=== PATIENT | female | born 1945 | race Caucasian/White ===

== ENCOUNTER 2023-11-08 14:54 | Outpatient (AMB) | payer MEDICARE, SELFPAY ==
--- NOTE | 2023-11-08 14:59 | MHC.OFFWIV ---
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 abscess Patient Tobacco Use Status: Never used Tobacco Allergies No Known Allergies Allergy (Verified 11/08/23 15:06) Medication List - Last Reconciled 11/08/23 by Liseth Hui NP apixaban (Eliquis) 5 mg PO BID atenolol 50 mg PO DAILY atorvastatin 40 mg PO DAILY calcium carbonate-vitamin D3 600 mg-10 mcg (400 unit) 1 tab PO BID fluticasone propionate 50 mcg/actuation sprays intranasal lisinopril 10 mg PO DAILY loratadine 10 mg PO DAILY methimazole mg PO nystatin 1 appl topical BID PRN sertraline 25 mg PO DAILY Do you need a note to return to daycare/school/sports/work: No HPI ADMINISTRATIVE ASSISTANT DATA ENTRY rash/cyst AB HPI Details This note is constructed using voice recognition software. While every effort has been made to ensure accuracy, offal worker errors may have been included. The patient is a 78 year old female presents with her to the clinic today with perineum rash. The patient has been diagnosed with dementia over 1 year ago, and the who has Parkinson's has been trying to provide her care. Ultimately through several avenues they were able to secure a home health aide which comes 3 times a week. The home health aide had been providing her with hygiene care, and due to the rash was applying Desitin to the area with a hygiene measures. The home health aide noticed that she had some cyst to the rabia area, and she was treated several weeks ago with antibiotics. She has another newer cyst which is much smaller to the periarea, which had led them to concern. She wears briefs for urinary incontinence, and is mobile with use of a cane and assistance only. Her dementia has led to significant decline over the past year, which has led to her inability to participate largely with her hygiene efforts. PFSH Social History Patient Tobacco Use Status: Never used Tobacco Review of Systems Const All systems reviewed & are unremarkable except as noted in HPI and below Physical Exam Vital Signs: Last Vital Signs Temp 98.3 F 11/08/23 15:01 Pulse 62 11/08/23 15:01 BP 108/70 11/08/23 15:01 Pulse Ox 98 11/08/23 15:01 Oxygen Delivery Method Room Air 11/08/23 15:01 BMI result Body Mass Index 32.8 Const General: cooperative, healthy appearing, comfortable, no acute distress and well developed Orientation/consciousness: patient oriented x3 Limitations: no limitations Resp Effort & Inspection: normal respiratory effort and able to speak in complete sentences Skin Other: Fungal rash to perineum. Small cystic lesion to the right with head. Neuro General: patient oriented x3 Assessment & Plan Assessment & Plan (1) Rash: Code(s): R21 - Rash and other nonspecific skin eruption Plan: Appears fungal in nature. We will try nystatin powder for it. Advised patient to keep the area clean and dry. Trial warm compresses to small cystic area for assistance with drainage. Defer prescription treatment at this time given this is an isolated cyst and she had recently been treated with antibiotics. Plan See above for full details and plan. Medications: New nystatin 1 appl topical BID PRN 30 grams 0RF rash Coding Level of Care Code Est Pt Level 4 (72204) Diagnoses Rash R21 Time Spent (min) 25
[2023-11-08 15:01] VITALS: BP 108/70; PULSE 62; TEMP 36.8; O2SAT 98; BMI 32.8
== END 2023-11-08 16:32 | disposition home or self-care (01) ==
PROVIDERS: PCP Internal Medicine; Visit Provider Registered Nurse
DX: R21 Rash and other nonspecific skin eruption (principal)

== ENCOUNTER → 2023-11-08 14:54 | Outpatient (BNVA) | payer MEDICARE, SELFPAY | PROVIDERS: PCP Internal Medicine | DX: R21 Rash and other nonspecific skin eruption (principal) | CPT/HCPCS: 99212 ==

== ENCOUNTER 2024-04-11 09:37 | Outpatient (AMB) | payer MEDICARE, SELFPAY ==
--- OUTSIDE RECORDS SUMMARY | 2024-04-11 10:21 | XMS_ITS | Encounter Summary ---
Author Organization [facility] Address [address] [place] [address] Care Team Providers Care Administrative Liaison Name Role Phone Celestine Doyle MD Primary Care Provider [phone] Reason for Visit * Reason Comments ANNUAL WELLNESS VISIT Encounter Details Date Type Department Care Team (Late st Contact Info) Description 04/05/2024 3:00 PM EST Office Visit Adult Medicine [facility] [place] [address] [place] [phone] Celestine Doyle MD [address] [place] [address] Alzheimer disease (CMS/HCC) (Primary Dx); Other hyperlipidemia; Urinary incontinence, unspecified type; Hyperglycemia; Primary hypertension; Pure hypercholesterolemia Social History Tobacco Use Types Packs/Day Years Used Date Smoking Tobacco: Never Assessed Cigarettes Quit: 01/11/1968 Smokeless Tobacco: Never Alcohol Use Standard Drinks/Week Comments Yes 0 (1 standard drink = 0.6 oz pur e alcohol) Comments No Sex and Gender Information Value Date Recorded Sex Assigned at Not on file Legal Sex Female 6:54 PM EST Gender Identity Not on file Sexual Orientation Not on file documented as of this encounter Last Filed Vital Signs Vital Sign Reading Time Taken Comments Blood Pressure 122/68 04/05/2024 3:11 PM EST Pulse 56 04/05/2024 3:11 PM EST Temperature 36.1 ??C (96.9 ??F) 04/05/2024 3:11 PM ES T Respiratory Rate 20 04/05/2024 3:11 PM EST Oxygen Saturation - - Inhaled Oxygen Concentration - - Weight 90.3 kg (199 lb) 04/05/2024 3:11 PM EST Height 172.7 cm (5' 8 ) 04/05/2024 3:11 PM EST Body Mass Index 30.26 04/05/2024 3:11 PM EST documented in this encounter Progress Notes * Celestine Doyle MD - 04/05/2024 3:00 PM ESTAssociated Problem(s): Alzheimer disease (CMS/HCC) * Celestine Doyle MD - 04/05/2024 3:00 PM ESTAssociated Problem(s): Hyperlipidemia * Celestine Doyle MD - 04/05/2024 3:00 PM ESTAssociated Problem(s): Hyperglycemia * Celestine Doyle MD - 04/05/2024 3:00 PM ESTAssociated Problem(s): Primary hypertension * Celestine Doyle MD - 04/05/2024 3:00 PM ESTAssociated Problem(s): Pure hypercholesterolemia * Celestine Doyle MD - 04/05/2024 3:00 PM EST Images from the original note were not included. Medicare Annual Wellness Visit Note Patient Name: Mabel Longo Date of : 1945 Race: White Ethnicity: Not Hispan/Lat Date of Service: 04/05/2024 Mabel is a 78 y.o. female presenting for ANNUAL WELLNESS VISIT History of Present Illness HPI See below for complete details Comprehensive Medical and Social History: Patient Active Problem List Diagnosis Abnormal MRI Actinic keratosis Acute deep vein thrombosis (DVT) of calf muscle vein of right lower extremity (CMS/HCC) Alzheimer disease (CMS/HCC) Primary hypertension Current mild episode of major depressive disorder without prior episode (CMS/HCC) Diverticulitis of colon without hemorrhage Hyperglycemia Hyperlipidemia Infiltrating duct carcinoma (CMS/HCC) Malignant neoplasm of right female breast (CMS/HCC) Obesity Osteoarthrosis Osteopenia Pure hypercholesterolemia Subclinical hyperthyroidism Vitamin D deficiency Allergies Allergen Reactions Azithromycin Other Reaction(s): Rash/Dermatitis Bactrim [Sulfamethoxazole-Trimethoprim] Other Reaction(s): Hives/Urticaria, Itching/Pruritus Demerol [Meperidine] Nausea And Vomiting Doxycycline Hyclate Other Reaction(s): Rash/Dermatitis Penicillins Sulfa (Sulfonamide Antibiotics) Other Reaction(s): Rash/Dermatitis Current Outpatient Medications Medication Sig Dispense Refill apixaban (Eliquis) 5 mg tablet TAKE 1 TABLET BY MOUTH TWICE DAILY atenoloL (TENORMIN) 25 mg tablet TAKE 1 TABLET BY MOUTH EVERY DAY WITH 50 MG TABLET FOR A TOTAL DAILY DOSE OF 75 MGS atenoloL (TENORMIN) 50 mg tablet TAKE 1 TABLET BY MOUTH EVERY DAY 28 tablet 0 atorvastatin (LIPITOR) 40 mg tablet Take 1 Tablet by mouth daily for 360 days. calcium carbonate-vitamin D 600 mg-10 mcg (400 unit) per tablet TAKE 1 TABLET BY MOUTH TWICE A DAY fluticasone propionate (FLONASE) 50 mcg/actuation nasal spray folic acid (FOLVITE) 800 mcg tablet Take by mouth 1 (one) time each day. lisinopriL (PRINIVIL,ZESTRIL) 10 mg tablet Take 1 Tablet by mouth daily. sertraline (ZOLOFT) 25 mg tablet TAKE 1 TABLET BY MOUTH EVERY DAY cholecalciferol (VITAMIN D-3) 50 mcg (2,000 unit) tablet TAKE 1 TABLET BY MOUTH EVERY DAY clindamycin (CLEOCIN) 300 mg capsule Take 1 capsule (300 mg total) by mouth 4 (four) times a day. loperamide (IMODIUM) 2 mg capsule Take 1 capsule (2 mg total) by mouth 4 (four) times a day if needed for diarrhea. loratadine (CLARITIN) 10 mg tablet Take 1 Tablet by mouth daily for 360 days. methIMAzole (TAPAZOLE) 5 mg tablet Take 2 Tablets by mouth daily. trospium (SANCTURA) 20 mg tablet Take 3 tablets (60 mg total) by mouth 2 (two) times a day. No current facility-administered medications for this visit. Past Medical History: Diagnosis Date Actinic keratosis, hx of DX:Actinic keratosis, hx of Diverticulosis of colon (without mention of hemorrhage) 12/26/2012 DX:Diverticulosis of colon (without mention of hemorrhage); COMMENT: Incidental finding at colonoscopy 12/26/2012. Essential hypertension, benign 09/02/2006 DX:Essential hypertension, benign H/O right breast biopsy rt breast cancer/04/15 lumpectomy Hyperglycemia 09/11/2009 DX:Hyperglycemia Malignant neoplasm of right female breast (CMS/HCC) 07/28/2021 DX:Malignant neoplasm of right female breast (HCC) Obesity 06/16/2010 DX:Obesity Osteoarthrosis, unspecified whether generalized or localized, lower leg 09/02/2006 DX:Osteoarthrosis, unspecified whether generalized or localized, lower leg Pure hypercholesterolemia 09/02/2006 DX:Pure hypercholesterolemia Past Surgical History: Procedure Laterality Date COLONOSCOPY 2002 PROCEDURE: MN COLONOSCOPY FLX DX W/COLLJ SPEC WHEN PFRMD; COMMENT: normal COLONOSCOPY 2012 PROCEDURE: MN COLONOSCOPY FLX DX W/COLLJ SPEC WHEN PFRMD; COMMENT: minimal diverticulosis TOTAL KNEE ARTHROPLASTY PROCEDURE: HISTORICAL TOTAL KNEE REPLACE; COMMENT: bilateral Social History Socioeconomic History Marital status: Spouse name: Not on file Number of children: Not on file Years of education: Not on file Highest education level: Not on file Occupational History Not on file Tobacco Use Smoking status: Not on file Smokeless tobacco: Never Substance and Sexual Activity Alcohol use: Yes Drug use: Never Sexual activity: Not on file Other Topics Concern Not on file Social History Narrative Not on file Family History Problem Relation Name Age of Onset Basal cell carcinoma Mother Nose Breast cancer Mother age 69 Cancer Mother Breast Other (Other: chf) Father Breast cancer Sister 56 age 56; BRCA negative Melanoma Sister Dec 2009 .... inside of right thigh, reexcision without sentinenal nodes .... fse q 3 months Breast cancer Sister Diabetes Daughter cervical Ca age 31 Cancer Daughter Cervical Cancer Diabetes Uncle Breast cancer Mother's side aunt Breast cancer Other m cousin 70s Immunizations: Immunization History Administered Date(s) Administered H1N1 Inj Preservative Free 02/01/2009 Influenza trivalent, 0.5mL (Fluzone High-dose) 65yo and older 02/01/2009, 12/27/2009, 12/16/2010, 11/24/2011, 12/22/2012, 12/20/2014, 12/29/2015, 11/29/2016, 11/21/2017, 11/21/2018, 10/26/2019, 12/24/2020, 12/22/2021, 11/24/2022 Influenza trivalent, with preservative (Fluzone; Afluria) 6mo and older 12/11/2006, 11/29/2007 Influenza, Unspecified 12/06/2013 Moderna (age 6mo & older) Bivalent, COVID-19, 0.5 mL or 0.25 mL dosage 10/31/2021 Spor Chargers SARS-CoV-2 COVID-19, mRNA, LNP-S, preservative free 03/29/2020, 04/19/2020, 11/21/2020 Pneumococcal conjugate 13 valent (Prevnar 13, PCV13) 2mo and older 01/14/2015 Pneumococcal polysaccharide 23 valent (Pneumovax 23) 2yo and older 12/16/2010 Tdap Tetanus diptheria acellular pertussis (Boostrix; Adacel) 7yo and older 11/24/2011, 11/24/2022 Zoster Live 08/02/2012 Zoster recombinant (Shingrix) 19yo and older 04/25/2019 Hospitalization in the last year: Has been hospitalized once in the past 12 months. Current Providers and Suppliers: Patient Care Team: Celestine Doyle MD as PCP - General Patient does not have/use current medical supplier Risk Assessments: Cognitive Function Assessment Cognitive screening performed. Depression Screening (PHQ2/9): Depression Screening Will the patient answer the depression risk questions?: Yes Over the last 2 weeks, how often have you been bothered by little interest or pleasure in doing things?: Several days Over the last 2 weeks, how often have you been bothered by feeling down, depressed, or hopeless?: Not at all Depression Risk: 1 PHQ9 Full Set of Questions Over the last 2 weeks, how often have you been bothered by little interest or pleasure in doing things?: Several days Over the last 2 weeks, how often have you been bothered by feeling down, depressed, or hopeless?: Not at all Depression Risk Score NEW: 1 Depression Plan : ... Somewhat unreliable, due to significant Alzheimer's disease, please see below Anxiety Screening: Alcohol Screening: Substance Abuse Screening: See below for complete details Pain: Pain Medications: Patient does not take any opioid medications BMI: Body mass index is 30.26 kg/m??. The BMI jaclyn above average. The patient received dietary education because they have an above normal BMI. Functional Ability and Level of Safety Review Health Status: In general, the patient reports health as: good In general, patient reports life as: excellent Patient reports sleep pattern as: sleeping well Have you seen a dentist in the last year?: No Activity of Daily Living (ADLs): Do you need help from others for your personal care such as eating, dressing, toileting, or gettingaround the house?: No Do you experience incontinence?: Yes Instrumental Activities of Daily Living (IADLs): Do you need help with using the telephone?: No Do you need help with shopping?: Yes Do you need help with food preparation?: No Do you need help with housekeeping?: No Do you need help with laundry?: No Do you need help handling finances?: No Do you drive?: No Do you manage your own medication?: No Physical Activity: Do you exercise for about 20 minutes or more three days a week?: No Nutritional Assessment: Do you eat a balanced diet including daily serving of fruits, vegetables, and whole grains?: Yes, sometimes Social Influencer of Health (SIOH): Sexual Health: Have you been bothered by sexual problems: Declined to answer Fall Risk: Have you fallen in the past year? yes. Are you worried about falling? yes. . Hearing: No data recorded Vision Screening: Required for Medicare Initial Preventative Physical Exam (IPPE) No data recorded Review of Systems Review of Systems Objective BP 122/68 Pulse 56 Temp 36.1 ??C (96.9 ??F) (Temporal) Resp 20 Ht 1.727 m (68 ) Wt 90.3 kg (199 lb) BMI 30.26 kg/m?? Physical Exam Assessment/Plan Patient presented today for an Subsequent Medicare Wellness Visit with management of chronic condition(s). Assessment & Plan Alzheimer disease (CMS/HCC) Other hyperlipidemia Urinary incontinence, unspecified type Hyperglycemia Primary hypertension Pure hypercholesterolemia Advance Care Planning Discussion: Advance Care Planning was discussed. Mabel reports that she does not have advance directives or surrogate decision maker. Patient has not identified their surrogate decision maker. During the visit we discussed: Code Status was discussed No Order and Available Advanced Directive forms discussed A total time of 16 minutes or greater was spent on Advance Care Planning today :Yes, between 16-29 minutes, total actual time 20 (if applicable add billing code 54457 with modifier 25 or modifier 33 if during a medicare wellness visit) Fall Prevention Education Discussed: removal of throw rugs in home, adequate lighting/night lights,pausing with transitional movements, paying attention to surroundings, clear pathways/stairs, not rushing through tasks, and safe mobility over nikolai transitions Health Maintenance Topic Date Due Zoster Vaccines (2 of 2) 06/20/2019 RSV Immunization Patients 60+ Years Old (1 - 1-dose 75+ series) Never done Social Influencers of Health Screening Never done Influenza Vaccine (1) 10/24/2023 COVID-19 Vaccine ( season) 2023 Hypertension/CHF/CAD Annual BMP Blood Test 03/19/2024 Falls Risk Assessment 04/05/2025 Depression Screening 04/05/2025 Medicare Annual Wellness Visit 04/05/2025 Cholesterol Screening (Lipid Panel) 06/10/2027 Osteoporosis Screening (Bone Density Screening) 07/26/2031 DTaP,Tdap,and Td Vaccines (3 - Td or Tdap) 11/24/2032 Pneumococcal Vaccine: 50+ Years Completed Hepatitis C Screening Completed HIB Vaccines Aged Out Hepatitis B Vaccines Aged Out IPV Vaccines Aged Out Hepatitis A Vaccines Aged Out MMR Vaccines Aged Out Varicella Vaccines Aged Out Meningococcal ACWY Vaccine Aged Out Meningococcal B Vacine Aged Out HPV Vaccines Aged Out RSV Immunization Patients Under 20 months Aged Out Celestine Doyle MD [facility] [address] [address] Dept: [phone] Dept CHIEF COMPLAINT: ANNUAL WELLNESS VISIT IDENTIFIER: Mabel Longo is a 78 y.o. old female. HPI: Although the main purpose for this visit is for AWV, patient also presents for evaluation of her multiple medical issues including worsening memory decline and functionality. Today patient is Kumpe by her Benjamin, with whom I had a previous multiple conversation regarding patient's deterioration. Today Benjamin started to cry thinking about the future. There is issues of incorporation although there is no major behavior disturbances. Leading to a nervous breakdown of the needing psychiatric intervention. Adding to the stress is the fact that patient's involved daughter Liseth is struggling after a difficult kidney transplant, her other daughter marii Rodriguez is not particularly helping. In general patient is listening to her although it created much stress for the . Sheis taking medication as instructed. No chest pain shortness of breath palpitation abdominal pain diarrhea constipation. Patient answersquestions appropriately, please see below regarding neurologic examination. ROS: GENERAL: Negative for malaise, significant weight loss and fever RESPIRATORY: No cough, wheezing or shortness of breath CARDIOVASCULAR: Negative for chest pain, leg swelling and palpitations GI: Negative for abdominal discomfort, changes in bowel habits, blood in stool or black stools PAST MEDICAL HISTORY: Patient Active Problem List Diagnosis Date Noted Abnormal MRI 05/10/2023 Alzheimer disease ([facility]) 04/01/2023 Current mild episode of major depressive disorder without prior episode ([facility]) 04/01/2023 Acute deep vein thrombosis (DVT) of calf muscle vein of right lower extremity ([facility]) 10/22/2022 Subclinical hyperthyroidism 06/09/2022 Vitamin D deficiency 10/30/2021 Hyperlipidemia 07/28/2021 Malignant neoplasm of right female breast ([facility]) 07/28/2021 Infiltrating duct carcinoma ([facility]) 04/23/2021 Osteopenia 11/21/2018 Actinic keratosis 04/18/2014 Diverticulitis of colon without hemorrhage 12/26/2012 Obesity 06/16/2010 Hyperglycemia 09/11/2009 Primary hypertension 09/02/2006 Osteoarthrosis 09/02/2006 Pure hypercholesterolemia 09/02/2006 SOCIAL HISTORY: Social History Tobacco Use Smoking status: Not on file Smokeless tobacco: Never Substance Use Topics Alcohol use: Yes FAMILY HISTORY: Family Status Relation Name Status Mother Father (Not Specified) Sister 56 Alive Sister (Not Specified) Sister (Not Specified) Daughter (Not Specified) Daughter (Not Specified) Uncle (Not Specified) Mother's gauri aunt Other m cousin 70s No partnership data on file Family History Problem Relation Name Age of Onset Basal cell carcinoma Mother Nose Breast cancer Mother age 69 Cancer Mother Breast Other (Other: chf) Father Breast cancer Sister 56 age 56; BRCA negative Melanoma Sister Dec 2009 .... inside of right thigh, reexcision without sentinenal nodes .... fse q 3 months Breast cancer Sister Diabetes Daughter cervical Ca age 31 Cancer Daughter Cervical Cancer Diabetes Uncle Breast cancer Mother's side aunt Breast cancer Other m cousin 70s ACTIVE MEDICATIONS: Outpatient Medications Marked as Taking for the 04/05/24 encounter (Office Visit) with Celestine Doyle MD Medication Sig Dispense Refill apixaban (Eliquis) 5 mg tablet TAKE 1 TABLET BY MOUTH TWICE DAILY atenoloL (TENORMIN) 25 mg tablet TAKE 1 TABLET BY MOUTH EVERY DAY WITH 50 MG TABLET FOR A TOTAL DAILY DOSE OF 75 MGS atenoloL (TENORMIN) 50 mg tablet TAKE 1 TABLET BY MOUTH EVERY DAY 28 tablet 0 atorvastatin (LIPITOR) 40 mg tablet Take 1 Tablet by mouth daily for 360 days. calcium carbonate-vitamin D 600 mg-10 mcg (400 unit) per tablet TAKE 1 TABLET BY MOUTH TWICE A DAY fluticasone propionate (FLONASE) 50 mcg/actuation nasal spray folic acid (FOLVITE) 800 mcg tablet Take by mouth 1 (one) time each day. lisinopriL (PRINIVIL,ZESTRIL) 10 mg tablet Take 1 Tablet by mouth daily. sertraline (ZOLOFT) 25 mg tablet TAKE 1 TABLET BY MOUTH EVERY DAY ALLERGIES: Azithromycin, Bactrim [sulfamethoxazole-trimethoprim], Demerol [meperidine], Doxycycline hyclate, Penicillins, and Sulfa (sulfonamide antibiotics) PHYSICAL EXAM: Blood pressure 122/68, pulse 56, temperature 36.1 ??C (96.9 ??F), temperature source Temporal, resp. rate 20, height 1.727 m (68 ), weight 90.3 kg (199 lb). Body mass index is 30.26 kg/m??. BMI is greater than 25.0 (above the normal range) - see Plan APPEARANCE: Alert and in no acute distress, smiling, well hydrated, well groomed, has no hygiene and nutrition HEART: Normal S1-S2 LUNG: clear to auscultation bilaterally ABDOMEN: Bowel sounds normoactive, no bruits and soft, non-tender, without organomegaly or palpablemasses EXTREMITIES: No edema NEURO: AAO x 0, patient did address me by name, grossly nonfocal examination from motor standpoint SKIN: Skin color, texture, turgor normal. No rashes or lesions. LABS: Lab Results Component Value Date HGBA1C 5.3 06/09/2022 No results found for: GLUF , MICROALBUR , LDLCALC , CREATININE , MICROALBCREA Wt Readings from Last 5 Encounters: 04/05/24 90.3 kg (199 lb) 02/04/24 91.6 kg (202 lb) 01/03/24 92.5 kg (204 lb) 12/22/23 90.3 kg (199 lb) 11/25/23 89.6 kg (197 lb 9.6 oz) BP Readings from Last 5 Encounters: 04/05/24 122/68 02/04/24 102/54 01/03/24 118/72 12/22/23 123/75 11/25/23 133/68 IMPRESSION: 1. Alzheimer disease (CMS/HCC) 2. Other hyperlipidemia 3. Urinary incontinence, unspecified type 4. Hyperglycemia 5. Primary hypertension 6. Pure hypercholesterolemia PLAN: Although the main purpose for this visit is for AWV, patient also presents for evaluation of her multiple medical issues including worsening memory decline and functionality. Today patient is Kumpe by her Benjamin, with whom I had a previous multiple conversation regarding patient's deterioration. Today Benjamin started to cry thinking about the future. There is issues of incorporation although there is no major behavior disturbances. Leading to a nervous breakdown of the needing psychiatric intervention. Adding to the stress is the fact that patient's involved daughter Liseth is struggling after a difficult kidney transplant, her other daughter marii Rodriguez is not particularly helping. In general patient is listening to her although it created much stress for the . Sheis taking medication as instructed. No chest pain shortness of breath palpitation abdominal pain diarrhea constipation. Patient answersquestions appropriately, please see below regarding neurologic examination. 1 Alzheimer's disease with a likely disease progression for this patient who has multiple medical issues. Although patient recognize me, I cannot establish any meaningful conversation with her. I concentrated discussion on preserving the and future care planning, with very likely further disease progression. At this stage I am not quite sure medication would probably help, other than potential side effectsetc., patient clearly should continue to follow with specialists A we discussed significant pressure that may placed on the who has Parkinson's disease B discussed cost of medication, [facility] ( is [facility]) C prolonged discussion regarding potential consideration for long-term care also [facility], [facility] D discussed different type of social help insurance coverage or lack cough, financial issues E discussed aggressive care CODE STATUS 2 hyperglycemia discussed limiting carbohydrates yet I need to be realistic regarding largest difficulty eating food preparation etc. 3 DVT, breast cancer, concentrated on discussion of continuing follow-up with oncology, discontinuation of antihormone agent in the setting of DVT and anticoagulation, cost of anticoagulation. 4 blood pressure lipid well-controlled we will continue current medication Encouraged involvement of other family members, I will be more than happy to arrange another familymeeting to discuss long-term care plan No orders of the defined types were placed in this encounter. ADDITIONAL ORDERS: None Celestine Doyle MD on 04/06/2024 at 10:10 AM EST documented in this encounter Plan of Treatment Upcoming Encounters Date Type Department Care Team (Late st Contact Info) Description 07/03/2024 9:30 AM EDT Office Visit Adult Medicine [place] - [address] [phone] Celestine Doyle MD [address] [place] [address] 07/13/2024 9:00 AM EDT Office Visit Urogynecology [address] [phone] Padmini Horton NP [address] [place] [address] 09/18/2024 8:40 AM EDT Appointment Radiology Department - [place] [address], [place] [phone] 11/27/2024 9:30 AM EDT Office Visit [facility] Hematology Oncology [address] [place] [phone] Nichole Jerome MD [address] [place] [address] documented as of this encounter Visit Diagnoses Diagnosis Alzheimer disease (CMS/[facility])- Primary Alzheimer's disease Other hyperlipidemia Urinary incontinence, unspecified type Hyperglycemia Other abnormal glucose Primary hypertension Unspecified essential hypertension Pure hypercholesterolemia documented in this encounter Historical Medications * This list may reflect changes made after this encounter. clindamycin (CLEOCIN) 300 mg capsule Take 1 capsule (300 mg total) by mouth 4 (four) times a day. loperamide (IMODIUM) 2 mg capsule Take 1 capsule (2 mg total) by mouth 4 (four) times a day if needed for diarrhea. trospium (SANCTURA) 20 mg tablet Take 3 tablets (60 mg total) by mouth 2 (two) times a day. 04/10/2024 added in this encounter Additional Health Concerns Assessment Noted Time PHQ-9 Depression Total Score: 1 04/05/19 3:18 PM EST A fall risk assessment has been complete d for the patient 04/05/2024 3:14 PM EST documented as of this encounter Care Teams Administrative Liaison Relationship Specialty Start Date End Date Celestine Doyle MD [address] [place] [address] PCP - General 06/16/1997 documented as of this encounter
--- OUTSIDE RECORDS SUMMARY | 2024-04-11 10:21 | XMS_ITS | Encounter Summary ---
[facility] [address] [place] [address] Care Team Providers Care Integrative Medicine Physician Name Role Phone Celestine Doyle MD Primary Care Provider [phone] Encounter Details Date Type Department Care Team (Late st Contact Info) Description 11/25/2023 8:41 AM EDT Hospital Encounter TH HISTORIC ENCOUNTERS EASTERN CONVERSION ONLY Nichole Jerome MD [address] [place] [id number] Social History Tobacco Use Types Packs/Day Years [...] Sign Reading Time Taken Comments Blood Pressure 133/68 11/25/2023 9:04 AM EDT Sitting Left arm Pulse 57 11/25/2023 9:04 AM EDT Temperature - - Respiratory Rate - - Oxygen Saturation - - Inhaled Oxygen Concentration - - Weight 89.6 kg (197 lb 9.6 oz) 11/25/2023 9:04 AM EDT Height 165.1 cm (5' 5 ) 05/20/2023 9:08 AM EDT Body Mass Index 30.95 08/04/2023 10:30 AM EDT documented in this encounter Progress Notes * Nichole Jerome MD - 11/25/2023 9:00 AM EDT CHIEF COMPLAINT: Follow-up IDENTIFIER:Mabel Longo is a 78 y.o. female. 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 resected 2-1/2 years ago, patientdid endocrine therapy for almost 2 years but discontinued because of DVT and side effects etc., patient mainly having some memory issues lately, patient denies any anorexia or weight loss, patient trying to be very active but having difficult time because of difficulty in ambulation, patient deniesany chest pain chest pressure Patient denies any significant breast related complaint ROS: As above in HPI Oncology History Overview Note Patient on any screening mammogram on 02/26/2021 found to have a suspicious lesion in the right breast Patient underwent diagnostic mammogram and ultrasound that confirmed 1.2 cm hypoechoic irregular mass at 6 o'clock position in the right breast Patient underwent ultrasound-guided core biopsy on 03/13/2021, biopsy result showed grade 1 invasiveductal carcinoma which is ER/VT positive HER-2/eliud negative Patient saw in February 2021 Patient underwent lumpectomy and found to have 2.8 cm invasive carcinoma of right breast which is grade 1 pathology, ER/VT positive HER-2/eliud negative, pathological stage was T2NX Patient came to see me on 04/21/2021 to discuss about adjuvant treatment, I offered Oncotype DX testing but since because of her age and medical issues and low-grade malignancy which is hormone positive decision made not to do any further aggressive intervention, patient will be seeing radiation oncologist for possible adjuvant radiation and following that patient will return to my office to discuss about adjuvant endocrine therapy Patient underwent adjuvant radiation during AprilMay 2021 Patient is started anastrozole 1 mg daily from third week of June 2021, patient baseline bone density on 07/25/2021 showed osteopenia PAST MEDICAL HISTORY: Hypertension Osteopenia Osteo arthritis Diverticulitis Breast cancer DVT ?? SOCIAL HISTORY: Quit smoking many years ago Used to drink socially She is lives with her FAMILY HISTORY: Family History Problem Relation Age of Onset ??? Cancer Mother Breast ??? Cancer Sister Breast Cancer ??? Cancer Daughter Cervical Cancer Family Status Relation Name Status ??? Mother (Not Specified) ??? Sister (Not Specified) ??? Daughter (Not Specified) Current Outpatient Medications: ??? atenolol (TENORMIN) tablet 50 mg, Take 1 tablet (50 mg total) by mouth daily., Disp: , Rfl: ??? Calcium Carb-Cholecalciferol (Calcium Carbonate-Vitamin D3) 600-400 MG-UNIT TABS, Take by mouthdaily., Disp: , Rfl: ??? Cholecalciferol (Vitamin D) 50 MCG (2000 UT) CAPS, Take 2,000 Units by mouth daily., Disp: , Rfl: ??? clindamycin (CLEOCIN) 300 MG capsule, Take 2 capsules (600 mg total) by mouth., Disp: , Rfl: ??? lisinopril (PRINIVIL,ZESTRIL) tablet 10 mg, Take 1 tablet (10 mg total) by mouth daily., Disp: , Rfl: ??? methIMAzole (TAPAZOLE) tablet 5 mg, Take 1 tablet (5 mg total) by mouth 3 (three) times a day.,Disp: , Rfl: ??? Nystatin POWD, by Does not apply route., Disp: , Rfl: ??? nystatin-triamcinolone (MYCOLOG II) cream, Apply 1 application topically 2 (two) times a day., Disp: , Rfl: ??? simvastatin (ZOCOR) tablet 40 mg, Take 1 tablet (40 mg total) by mouth every night at bedtime.,Disp: , Rfl: You are allergic to the following Date Reviewed: 11/25/2023 Allergen Reactions Meperidine Nausea And Vomiting Penicillins Not Noted Sulfamethoxazole-Trimethoprim Hives Itching Azithromycin Rash Doxycycline Rash Sulfa Antibiotics Rash PHYSICAL EXAM: BP 133/68 (BP Location: Left arm) Pulse 57 Temp 98.1 ??F (36.7 ??C) (Temporal) Wt 89.6 kg (197 lb 9.6 oz) SpO2 98% BMI 32.88 kg/m?? ECOG 1-2 APPEARANCE: Alert and partially oriented in no acute distress EYES: nonicteric sclera pink conjunctiva ORAL CAVITY: No erythema or exudates NECK: Neck supple, no significant adenopathy, BREAST: There is a healed scar in the right breast, no discrete palpable mass in either breast, there is a cystic lesion in the left axilla LYMPH NODES: No palpable superficial adenopathy ABDOMEN: soft, nontender and no organomegaly appreciated EXTREMITIES: No significant edema erythema or tenderness IMPRESSION: SNOMED CT(R) 1. Infiltrating ductal carcinoma of right breast (HCC) INFILTRATING DUCT CARCINOMA OF BREAST 2. Acute deep vein thrombosis (DVT) of right lower extremity, unspecified vein (HCC) ACUTE DEEP VENOUS THROMBOSIS OF RIGHT LOWER EXTREMITY Patient is a 78-year-old female who in February 2021 had stage II hormone positive invasive carcinoma of right breast resected, patient after adjuvant radiation started on aromatase inhibitor but unfortunately patient also have blood clot and was on blood thinner for a year, patient was having some other issues and there was a concern that blood clot was may be due to aromatase inhibitordiscontinued aromatase inhibitor earlier this year. Patient have no significant signs symptoms suggestive of recurrence but I discussed with the patient and her about potential of recurrence and if she really have recurrence in her mid to late 80s at that time she can be treated with endocrine therapy PLAN: Continue without aromatase inhibitor Patient will discuss with PCP regarding her memory issues Return to office next summer Nichole Jerome MD documented in this encounter Plan of Treatment Upcoming Encounters Date Type Department Care Team (Late Contact Info) Description 07/03/2024 9:30 AM EDT Office Visit Adult Medicine [facility] - [address] [phone] Celestine Doyle MD [address] [place] [address] 07/13/2024 9:00 AM EDT Office Visit Urogynecology - [address] [phone] Padmini Horton NP [address] [place] [address] 09/18/2024 8:40 AM EDT Appointment Radiology Department - [address] [phone] 11/27/2024 9:30 AM EDT Office Visit [facility] Hematology Oncology [address] [place] [address] Nichole Jerome MD [address] [place] [address] documented as of this encounter Visit Diagnoses Not on filedocumented in this encounter Care Teams Integrative Medicine Physician Relationship Specialty Start Date End Date Celestine Doyle MD [address] [place] [address] PCP - General 06/16/1997 documented as of this encounter
--- OUTSIDE RECORDS SUMMARY | 2024-04-11 10:21 | XMS_ITS | Encounter Summary ---
Author Organization [facility] [address] Address [address] [place] [address] Care Team Providers Care Internet Sales Consultant Name Role Phone Celestine Doyle MD Primary Care Provider [phone] Reason for Referral * Imaging (Routine) - Closed Specialty Diagnoses / Procedures Referred By Mary richter Referred To Contact Radiology Diagnoses Abnormal mammogram Procedures MG Mammo Diagnostic Addl Views Right Celestine Doyle MD [address] [place] [address] Phone: tel: fax: [address] Phone: tel: Referral ID Status Reason Start Date Expiration Date Visits Re quested Visits Authorized [id number] Closed 03/17/2024 03/17/2025 1 1 Reason for Visit * Imaging (Routine) - Closed Specialty Diagnoses / Procedures Referred By Mary richter Referred To Contact Radiology Diagnoses Abnormal mammogram Procedures MG Mammo Diagnostic Addl Views Right Celestine Doyle MD [address] [place] [address] Phone: tel: fax: [address] Phone: tel: Referral ID Status Reason Start Date Expiration Date Visits Re quested Visits Authorized [id number] Closed 03/17/2024 03/17/2025 1 1 Encounter Details Date Type Department Care Team (Latest Contact Info) Description 03/22/2024 8:40 AM EST - 03/22/2024 11:59 PM [facility] Hospital Encounter Radiology Department - [address] [address] Abnormal mammogram Discharge Disposition: Home or Self Care Social History Tobacco Use Types Packs/Day Years [...] on file documented as of this encounter Medications at Time of Discharge apixaban (Eliquis) 5 mg tablet TAKE 1 TABLET BY MOUTH TWICE DAILY 08/09/2023 atenoloL (TENORMIN) 25 mg tablet TAKE 1 TABLET BY MOUTH EVERY DAY WITH 50 MG TABLET FOR A TOTAL DAILY DOSE OF 75 MGS 03/19/2023 atenoloL (TENORMIN) 50 mg tablet TAKE 1 TABLET BY MOUTH EVERY DAY 28 tablet 02/28/2024 atorvastatin (LIPITOR) 40 mg tablet Take 1 Tablet by mouth daily for 360 days. 05/10/2023 05/04/2024 calcium carbonate-vitamin D 600 mg-10 mcg (400 unit) per tablet TAKE 1 TABLET BY MOUTH TWICE A DAY 12/18/2022 cholecalciferol (VITAMIN D-3) 50 mcg (2,000 unit) tablet TAKE 1 TABLET BY MOUTH EVERY DAY 01/06/2023 fluticasone propionate (FLONASE) 50 mcg/actuation nasal spray 08/04/2023 folic acid (FOLVITE) 800 mcg tablet Take by mouth 1 (one) time each day. lisinopriL (PRINIVIL,ZESTRIL ) 10 mg tablet Take 1 Tablet by mouth daily. 03/19/2023 loratadine (CLARITIN) 10 mg tablet Take 1 Tablet by mouth daily for 360 days. 08/04/2023 07/29/2024 methIMAzole (TAPAZOLE) 5 mg tablet Take 2 Tablets by mouth daily. 03/24/2023 sertraline (ZOLOFT) 25 mg tablet TAKE 1 TABLET BY MOUTH EVERY DAY 06/29/2023 documented as of this encounter Discharge Disposition Disposition Code Departure Means Destination Home or Self Care documented in this encounter Plan of Treatment Upcoming Encounters Date Type Department Care Team (Late st Contact Info) Description 07/03/2024 9:30 AM EDT Office Visit [facility] - [address] [phone] Celestine Doyle MD [address], [place] 07/13/2024 9:00 AM EDT Office Visit Urogynecology - [address] [phone] Padmini Horton NP [address] [place] [address] 09/18/2024 8:40 AM EDT Appointment Radiology Department - [address] [phone] 11/27/2024 9:30 AM EDT Office Visit [facility] Hematology Oncology [address] [place] [address] Nichole Jerome MD [address] [place] [address] documented as of this encounter Procedures Procedure Name Priority Date/Time Associated Diagnosis Comments MG MAMMO DIAGNOSTIC ADDL VIEWS RIGHT Routine 03/22/2024 8:57 AM EST Abnormal mammogram documented in this encounter Results * MG Mammo Diagnostic Addl Views Right (03/22/2024 8:57 AM EST) Anatomical Region Laterality Modality Breast Right Mammography 03/22/2024 9:02 AM EST Impressions 03/22/2024 9:05 AM EST Probably benign microcalcifications in the right inferomedial breast. ??Findings and recommendations were conveyed to the patient. ? BI-RADS CATEGORY: 3 - PROBABLY BENIGN RECOMMENDATION: Short Interval Follow-up is recommended for the right breast in 6 months. Mammo Location: [facility], [address] [place] [address], [id number], . -------- FINAL REPORT -------- Dictated By: Bella Villanueva Dictated Date: 03/22/2024 09:02 ET Assigned Physician: Bella Villanueva Reviewed and Electronically Signed By: Bella Villanueva Signed Date: 03/22/2024 09:05 ET Workstation ID: [id number] Transcribed By: Self Edit Transcribed Date: 03/22/2024 09:02 ET Narrative 03/22/2024 9:05 AM EST Right breast mammogram, additional views. CLINICAL: 78 years old, Female, microcalcifications in the lower inner quadrant of the right breast. COMPARISON: Prior examinations, latest from 03/16/2024. ?? FINDINGS: MAMMOGRAPHY TECHNIQUE: Magnification views of the right breast in CC and MLO projections were obtained digitally with 2-D mammogram. ?? Loose group of microcalcifications in the lower inner quadrant of the right breast in the close location to the post lumpectomy scarring and clips is probably benign. ??It consist of several loosely grouped mostly linear calcifications. ??Follow-up mammogram is recommended in 6 months with magnification views only. BREAST DENSITY: C - The breasts are heterogeneously dense which may obscure small masses. Procedure Note Bella Villanueva MD - 03/22/2024 Right breast mammogram, additional views. CLINICAL: 78 years old, Female, microcalcifications in the lower innerquadrant of the right breast. COMPARISON: Prior examinations, latest from 03/16/2024. FINDINGS: MAMMOGRAPHY TECHNIQUE: Magnification views of the right breast in CC and MLOprojections were obtained digitally with 2-D mammogram. Loose group of microcalcifications in the lower inner quadrant of theright breast in the close location to the post lumpectomy scarring andclips is probably benign. It consist of several loosely grouped mostlylinear calcifications. Follow-up mammogram is recommended in 6 monthswith magnification views only. BREAST DENSITY: C - The breasts are heterogeneously dense which mayobscure small masses. IMPRESSION: Probably benign microcalcifications in the right inferomedial breast.Findings and recommendations were conveyed to the patient. BI-RADS CATEGORY: 3 - PROBABLY BENIGN RECOMMENDATION: Short Interval Follow-up is recommended for the right breast in 6months. Mammo Location: [facility], [address] [place] [address], [id number], . -------- FINAL REPORT -------- Dictated By: Bella Villanueva Dictated Date: 03/22/2024 09:02 ET Assigned Physician: Bella Villanueva Reviewed and Electronically Signed By: Bella Villanueva Signed Date: 03/22/2024 09:05 ET Workstation ID: [id number] Transcribed By: Self Edit Transcribed Date: 03/22/2024 09:02 ET Celestine Doyle MD IMG BI PROCEDURES Final Result documented in this encounter Visit Diagnoses Diagnosis Abnormal mammogram Abnormal mammogram, unspecified documented in this encounter Care Teams Internet Sales Consultant Relationship Specialty Start Date End Date Celestine Doyle MD [address] [place] [address] PCP - General 06/16/1997 documented as of this encounter
--- OUTSIDE RECORDS SUMMARY | 2024-04-11 10:21 | XMS_ITS | Clinical Summary ---
Author Organization [facility] Address [address] [id number] Care Team Providers Care Seasoning Sprayer Name Role Phone Celestine Doyle MD Primary Care Provider [phone] Allergies Active Allergy Reactions Criticality Noted Date Comments Azithromycin Rash Low 11/23/2017 Doxycycline Rash Low 11/23/2017 Meperidine Nausea And Vomiting 12/26/2012 Penicillins 08/13/2005 Sulfa Antibiotics Rash Low 01/07/2017 Sulfamethoxazole-Trimethoprim Hives,Itching Medications Medication Sig Dispensed Refills Start Date End Date Status atenolol (TENORMIN) tablet 50 mg Take 1 tablet (50 mg total) by mouth daily. 0 02/13/2021 Active simvastatin (ZOCOR) tablet 40 mg Take 1 tablet (40 mg total) by mouth every night at bedtime. 0 06/12/2020 Active Calcium Carb-Cholecalciferol (Calcium Carbonate-Vitamin D3) 600-400 MG-UNIT TABS Take by mouth daily. 0 Acti ve clindamycin (CLEOCIN) 300 MG capsuleIndications:b efore dental procedure Take 2 capsules (600 mg total) by mouth. 0 Active Nystatin POWD by Does not apply route. 0 Active nystatin-triamcinolo ne (MYCOLOG II) cream Apply 1 application topically 2 (two) times a day. 0 Active Cholecalciferol (Vitamin D) 50 MCG (2000 UT) CAPS Take 2,000 Units by mouth daily. 0 Active lisinopril (PRINIVIL,ZESTRIL) tablet 10 mg Take 1 tablet (10 mg total) by mouth daily. 0 Active methIMAzole (TAPAZOLE) tablet 5 mg Take 1 tablet (5 mg total) by mouth 3 (three) times a day. 0 Active Active Problems Problem Noted Date Diagnosed Date Osteopenia 11/21/2018 Overview: Per dxa 10/2018 Diverticulitis of colon without hemorrhage 12/26 Overview: Incidental finding at colonoscopy 12/26/2012. Benign essential hypertension 09/02/2006 Osteoarthrosis involving lower leg 09/02/2006 Overview: S/p Left TKR, R TKR scheduled 09/30 IMO Update Fall 2015 Family History Medical History Relation Name Comments Cancer Daughter Cervical Cancer Cancer Mother Breast Cancer Sister Breast Cancer Relation Name Status Comments Daughter Mother Sister Social History Tobacco Use Types Packs/Day Years Used Date Smoking Tobacco: Former Smokeless Tobacco: Never Alcohol Use Standard Drinks/Week Comments Yes 0 (1 standard drink = 0.6 oz pur e alcohol) a glass a wine occasional Sex and Gender Information Value Date Recorded Sex Assigned at Not on file Gender Identity Not on file Sexual Orientation Not on file Job Start Date Occupation Industry Not on file Not on file Not on file Last Filed Vital Signs Vital Sign Reading Time Taken Comments Blood Pressure 133/68 11/25/2023 9:04 AM EDT Pulse 57 11/25/2023 9:04 AM EDT Temperature 36.7 ??C (98.1 ??F) 11/25/2023 9:04 AM ED T Respiratory Rate - - Oxygen Saturation 98% 11/25/2023 9:04 AM EDT Inhaled Oxygen Concentration - - Weight 89.6 kg (197 lb 9.6 oz) 11/25/2023 9:04 A M EDT Height 165.1 cm (5' 5 ) 05/20/2023 9:08 AM EDT Body Mass Index 32.88 05/20/2023 9:08 AM EDT Plan of Treatment Health Maintenance Due Date Last Done Comments Hepatitis C Screening 1944 Depression Screening 1956 Preventative Health Evaluation 1962 Fall Risk Assessment 2009 Osteoporosis Screening (DEXA Scan) 2009 Shingrix-Zoster Vaccine (2 of 2) 06/20/2019 04/25/2019 RSV Adult > 60+ Yrs or (1 - 1-dose 75+ series) 06/24/2019 COVID-19 Vaccine ( season) 2023 11/21/2020, 04/19/2020, 03/29/2020 Influenza Vaccine (#1) 2023 3, 12/22/2021, 12/24/2020, Additional history exists DTap / Tdap / Td (3 - Td or Tdap) 11/24/2032 11/24/2022, 11/24/2011 Pneumococcal Vaccine Completed 01/14/2015, 12/17/19 11 Hepatitis B Vaccines Aged Out No long er eligible based on patient's age to complete this topic RSV Ped < 20 months Aged Out No longe r eligible based on patient's age to complete this topic Care Teams Seasoning Sprayer Relationship Specialty Start Date End Date Celestine Doyle MD PCP - General Internal Medicine 03/20/21
--- OUTSIDE RECORDS SUMMARY | 2024-04-11 10:21 | XMS_ITS | Clinical Summary ---
Author Organization [facility] [address] [facility] Address [address] [place] [address] Phone Care Team Providers Care Aircraft Fueler Name Role Phone Celestine Doyle MD Primary Care Provider [phone] Allergies Active Allergy Reactions Criticality Noted Date Comments Azithromycin 11/23/2017 Other Reaction(s): Rash/Dermatitis Sulfamethoxazole-Trimet hoprim 03/09/2009 Other Reaction(s): Hives/Urticaria, Itching/Pruritus Meperidine Nausea And Vomiting 12/26/2012 Doxycycline Hyclate 11/23/2017 Other Reaction(s): Rash/Dermatitis Penicillins 08/13/2005 Sulfa (Sulfonamide Antibiotics) 01/07/2017 Other Reaction(s): Rash/Dermatitis Medications calcium carbonate-marly min D 600 mg-10 mcg (400 unit) per tablet TAKE 1 TABLET BY MOUTH TWICE A DAY 12/19/19 23 Active apixaban (Eliquis) 5 mg tablet TAKE 1 TABLET BY MOUTH TWICE DAILY 08/09/19 24 Active atenoloL (TENORMIN) 25 mg tablet TAKE 1 TABLET BY MOUTH EVERY DAY WITH 50 MG TABLET FOR A TOTAL DAILY DOSE OF 75 MGS 03/19/19 24 Active atorvastatin (LIPITOR) 40 mg tablet Take 1 Tablet by mouth daily for 360 days. 05/10/19 24 025 Active cholecalcifero l (VITAMIN D-3) 50 mcg (2,000 unit) tablet TAKE 1 TABLET BY MOUTH EVERY DAY 01/07/20 23 Active fluticasone propionate (FLONASE) 50 mcg/actuation nasal spray 08/04/19 24 Active lisinopriL (PRINIVIL,ZEST RIL) 10 mg tablet Take 1 Tablet by mouth daily. 03/19/19 24 Active loratadine (CLARITIN) 10 mg tablet Take 1 Tablet by mouth daily for 360 days. 08/04/19 24 025 Active methIMAzole (TAPAZOLE) 5 mg tablet Take 2 Tablets by mouth daily. 03/24/19 24 Active sertraline (ZOLOFT) 25 mg tablet TAKE 1 TABLET BY MOUTH EVERY DAY 06/29/19 24 Active folic acid (FOLVITE) 800 mcg tablet Take by mouth 1 (one) time each day. Active atenoloL (TENORMIN) 50 mg tablet TAKE 1 TABLET BY MOUTH EVERY DAY 28 tablet 02/27/19 25 Active loperamide (IMODIUM) 2 mg capsule Take 1 capsule (2 mg total) by mouth 4 (four) times a day if needed for diarrhea. Active clindamycin (CLEOCIN) 300 mg capsule Take 1 capsule (300 mg total) by mouth 4 (four) times a day. Active solifenacin (VESICARE) 5 mg tablet Take 1 tablet (5 mg total) by mouth 1 (one) time each day. Swallow tablet whole; do not crush, chew, or split. 30 tablet 3 04/11/19 25 Active trospium (SANCTURA) 20 mg tablet Take 3 tablets (60 mg total) by mouth 2 (two) times a day. 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 Jerome Radiation onc Osteopenia 11/21/2018 Overview (11/25/2023): Per dxa 10/2018 Actinic keratosis 04/18/2014 Overview (11/25/2023): Actinic keratosis Diverticulitis of colon without hemorrhage 12/26 Overview (11/25/2023): Incidental finding at colonoscopy 12/26/2012. Obesity 06/16/2010 Hyperglycemia 09/11/2009 Assessment & Plan (04/06/2024 10:10 AM EST): Primary hypertension 09/02/2006 Assessment & Plan (04/06/2024 10:10 AM EST): Osteoarthrosis 09/02/2006 Overview (11/25/2023): involving lower leg S/p Left TKR, R TKR scheduled 09/30 IMO Update Fall 2015 Pure hypercholesterolemia 09/02/2006 Assessment & Plan (04/06/2024 10:10 AM EST): Encounters Date Type Department Care Team Description 04/11/2024 8:45 AM EST Office Visit Urogynecology [address] [phone] Pearl Morales MD Urge incontinence (Primary Dx); Nocturia; Urinary urgency; Urinary frequency; Nocturnal enuresis; Incontinence of feces, unspecified fecal incontinence type; Prolapse of anterior vaginal wall; Uterine prolapse; Chronic skin ulcer, limited to breakdown of skin ([facility]) 04/05/2024 3:00 PM EST Office Visit Adult Medicine [place] - [address] [phone] Celestine Doyle MD Alzheimer disease ([facility]) (Primary Dx); Other hyperlipidemia; Urinary incontinence, unspecified type; Hyperglycemia; Primary hypertension; Pure hypercholesterolemia 03/22/2024 8:40 AM EST - 03/22/2024 11:59 PM EST Hospital Encounter Radiology Department - [address] [phone] Abnormal mammogram Discharge Disposition: Home or Self Care 03/16/2024 10:47 AM EST - 03/16/2024 11:59 PM EST Hospital Encounter Radiology Department - [address] [phone] Encounter for screening mammogram for breast cancer Discharge Disposition: Home or Self Care 02/04/2024 10:40 AM EST Consult Gastroenterology - [place] [address] [place] [address] Bob Dorsey PA Diarrhea, unspecified type (Primary Dx); Urinary frequency; Alzheimer's disease ([facility]); H/O deep venous thrombosis from Last 3 Months Immunizations Name Administration Dates Next Due H1N1 Inj Preservative Free 02/01/2009 Influenza trivalent, 0.5mL ( Fluzone High-dose) 65yo and older 11/24/2022,12/22/2021,12/24/2020,10/25,11/21/2018,11/21/2017,11/29/2016 ,12/29/2015,12/20/2014,12/22/2012,03/2011,12/16/2010,12/27/2009, 9 Influenza trivalent, with pr eservative (Fluzone; Afluria) 6mo and older 11/29/2007,12/11/2006 Influenza, Unspecified 12/06/2013 Pfizer SARS-CoV-2 COVID-19, mRNA, LNP-S, preservative free 11/21/2020,04/19/2020,03/29/2020 Pneumococcal conjugate 13 va lent (Prevnar 13, PCV13) 2mo and older 01/14/2015 Pneumococcal polysaccharide 23 valent (Pneumovax 23) 2yo and older 12/16/2010 Tdap Tetanus diptheria acell ular pertussis (Boostrix; Adacel) 7yo and older 11/24/2022,11/24/2011 Zoster Live 08/02/2012 Zoster recombinant (Shingrix ) 19yo and older 04/25/2019 Surgical History Surgery Date Site/Laterality Comments TOTAL KNEE ARTHROPLASTY PROCEDURE: HISTORICAL TOTAL KNEE REPLACE; COMMENT: bilateral COLONOSCOPY 2002 PROCEDURE: [place] COLONOSCOPY FLX DX W/COLLJ SPEC WHEN PFRMD; COMMENT: normal COLONOSCOPY 2012 PROCEDURE: [place] COLONOSCOPY FLX DX W/COLLJ SPEC WHEN PFRMD; COMMENT: minimal diverticulosis Medical History Medical History Date Comments Essential hypertension, benign 09/02/2006 D X:Essential hypertension, benign Pure hypercholesterolemia 09/02/2006 DX:Pur e hypercholesterolemia Osteoarthrosis, unspecified whether generalized or localized, lower leg 09/02/2006 DX:Osteoarthrosis, unspecified whether generalized or localized, lower leg Hyperglycemia 09/11/2009 DX:Hyperglycemia Obesity 06/16/2010 DX:Obesity Diverticulosis of colon (wit hout mention of hemorrhage) 12/26/2012 DX:Diverticulosis of colon ( without mention of hemorrhage); COMMENT: Incidental finding at colonoscopy 12/26/2012. Actinic keratosis, hx of DX:Acti shaq keratosis, hx of Malignant neoplasm of right female breast (CMS/HCC) 07/28/2021 DX:Malignant neoplasm of rig ht female breast (HCC) H/O right breast biopsy rt breas t cancer/04/15 lumpectomy Family History Medical History Relation Name Comments Diabetes Daughter 1 cervical Ca age 31 Cancer Daughter 2 Cervical Cancer Other: chf Father Basal cell carcinoma Mother Nose Breast cancer Mother age 69 Cancer Mother Breast Breast cancer Mother's side aunt Breast cancer Other m cousin 70s Breast cancer Sister 1 56 age 56; BRCA n egative Melanoma Sister 24 Dec 2009 .... i nside of right thigh, reexcision without sentinenal nodes .... fse q 3 months Breast cancer Sister 3 Diabetes Uncle Relation Name Status Comments Daughter 1 Daughter 2 Father Mother Mother's side aunt Other m cousin 70s Sister 1 56 Alive Sister 2 Sister 3 Uncle Social History Tobacco Use Types Packs/Day Years [...] on file Sexual Orientation Not on file Obstetrics History Para Term AB IAB SAB Ectopic Multiple Livin g Live Births 2 2 2 2 Date Outcome GA Total Labor Labor/2nd/3rd Weight Sex Type Anes PTL Savana A1 A5 Name Clin Term Term Last Filed Vital Signs Vital Sign Reading Time Taken Comments Blood Pressure 124/63 04/11/2024 8:46 AM EST Pulse 61 04/11/2024 8:46 AM EST Temperature 36.1 ??C (96.9 ??F) 04/05/2024 3:11 PM ES T Respiratory Rate 20 04/05/2024 3:11 PM EST Oxygen Saturation - - Inhaled Oxygen Concentration - - Weight 90.7 kg (200 lb) 04/11/2024 8:46 AM EST Height 172.7 cm (5' 8 ) 04/11/2024 8:46 AM EST Body Mass Index 30.41 04/11/2024 8:46 AM EST Plan of Treatment Upcoming Encounters Date Type Department Care Team (Late st Contact Info) Description 07/03/2024 9:30 AM EDT Office Visit Adult Medicine [place] - [address] [phone] Celestine Doyle MD [address] [place] [address] 07/13/2024 9:00 AM EDT Office Visit Urogynecology [address] [phone] Padmini Horton NP [address] [place] [address] 09/18/2024 8:40 AM EDT Appointment Radiology Department - [address] [phone] 11/27/2024 9:30 AM EDT Office Visit [facility] Hematology Oncology [address] [place] [phone] Nichole Jerome MD [address] [place] [address] Health Maintenance Due Date Last Done Comments Zoster Vaccines (2 of 2) 06/20/2019 04/25/2019, 07/23 RSV Immunization Patients 60+ Years Old (1 - 1-dose 75+ series) 06/24/2019 Social Influencers of Health Screening 01/29/2022 COVID-19 Vaccine ( season) 2023 10/31/2021, 11/21/2020, 04/19/2020, Additional history exists Influenza Vaccine (#1) 2023 , 12/22/2021, 12/24/2020, Additional history exists Hypertension/CHF/CAD Annual BMP Blood Test 03/19/2024 03/19/2023 Depression Screening 04/05/2025 04/05/2024 Falls Risk Assessment 04/05/2025 04/05/2024, 025 Medicare Annual Wellness Visit 04/05/2025 04/05/2024 Cholesterol Screening (Lipid Panel) 06/10/2027 06/09/2022 Osteoporosis Screening (Bone Density Screening) 07/26/2031 07/25/2021, 11/18/2018 DTaP,Tdap,and Td Vaccines (3 - Td or Tdap) 11/24/2032 11/24/2022, 11/24/2011 Pneumococcal Vaccine: 50+ Years Completed 01/14/2015, 12/16/2010 Hepatitis C Screening Completed 01/11/2017 HIB Vaccines Aged Out No longer eligi ble based on patient's age to complete this topic HPV Vaccines Aged Out No longer eligi ble based on patient's age to complete this topic Hepatitis A Vaccines Aged Out No long er eligible based on patient's age to complete this topic Hepatitis B Vaccines Aged Out No long er eligible based on patient's age to complete this topic IPV Vaccines Aged Out No longer eligi ble based on patient's age to complete this topic MMR Vaccines Aged Out No longer eligi ble based on patient's age to complete this topic Meningococcal ACWY Vaccine Aged Out N o longer eligible based on patient's age to complete this topic Meningococcal B Vacine Aged Out No lo nger eligible based on patient's age to complete this topic RSV Immunization Patients Under 20 months Aged Out No longer eligible based on patient's age to complete this topic Varicella Vaccines Aged Out No longer eligible based on patient's age to complete this topic Procedures Procedure Name Priority Date/Time Associated Diagnosis Comments MAMMO DIAGNOSTIC ADDL VIEWS RIGHT Routine 03/22/2024 8:57 AM EST Abnormal mammogram MAMMO DIGITAL SCREENING W JIMENEZ BILAT Routine 03/16/2024 11:21 AM EST Encounter for screening mammogram for breast cancer ANNUAL BMP BLOOD TEST Routine 03/19/2023 LIPID PANEL Routine 06/09/2022 [facility] DEXA AXIAL SKELETON Routine 07/25/2021 10:51 AM EDT Encounter for screening for osteoporosis HEPATITIS C SCREENING Routine 01/11/2017 from Last 3 Months or Most Recently Relevant to Health Maintenance Results * Mammo Diagnostic Addl Views Right (03/22/2024 8:57 AM EST) Anatomical Region Laterality Modality Breast Right Mammography 03/22/2024 9:02 AM EST Impressions 03/22/2024 9:05 AM EST Probably benign microcalcifications in the right inferomedial breast. ??Findings and recommendations were conveyed to the patient. ? BI-RADS CATEGORY: 3 - PROBABLY BENIGN RECOMMENDATION: Short Interval Follow-up is recommended for the right breast in 6 months. Mammo Location: [facility], [address] [place] [address], [address], . -------- FINAL REPORT -------- Dictated By: Bella Villanueva Dictated Date: 03/22/2024 09:02 ET Assigned Physician: Bella Villanueva Reviewed and Electronically Signed By: Bella Villanueva Signed Date: 03/22/2024 09:05 ET Workstation ID: [id number] Transcribed By: Self Edit Transcribed Date: 03/22/2024 [...] the right breast in 6months. Mammo Location: [facility], [address] [place] [address], [address], . -------- FINAL REPORT -------- Dictated By: Bella Villanueva Dictated Date: 03/22/2024 09:02 ET Assigned Physician: Bella Villanueva Reviewed and Electronically Signed By: Bella Villanueva Signed Date: 03/22/2024 09:05 ET Workstation ID: [id number] Transcribed By: Self Edit Transcribed Date: 03/22/2024 09:02 ET Celestine Doyle MD IMG BI PROCEDURES Final Result * (ABNORMAL) MG Mammo Digital Screening w Jimenez bilat (03/16/2024 11:21 AM EST) Anatomical Region Laterality Modality Breast Bilateral Mammography 03/16/2024 6:54 PM EST Impressions 03/16/2024 7:00 PM EST 1. ??Left: No mammographic evidence of malignancy 2. Right: Indeterminate lower outer anterior depth calcifications 3. Heterogeneous breast parenchyma BI-RADS CATEGORY: 0 - INCOMPLETE - NEED ADDITIONAL IMAGING EVALUATION RECOMMENDATION: Additional right breast imaging recommended. Right breast CC and ML magnification views Mammo Location: [facility], [address] [place] [address], [address], . -------- FINAL REPORT -------- Dictated By: Jonny Leija Dictated Date: 03/16/2024 18:54 ET Assigned Physician: Jonny Leija Reviewed and Electronically Signed By: Jonny Leija Signed Date: 03/16/2024 19:00 ET Workstation ID: [id number] Transcribed By: Self Edit Transcribed Date: 03/16/2024 18:54 ET Narrative 03/16/2024 7:00 PM EST A BILATERAL DIGITAL 3D SCREENING MAMMOGRAPHY HISTORY: Routine screening. ??Family history of breast cancer in mother. ??Personal history of right breast cancer status post breast conservation surgery. COMPARISON: Multiple priors dating back to 02/13/2020 Technique: Bilateral full field digital mammography (3D) was performed using standard CC and MLO projections , left breast exaggerated CC CAD ??was used to evaluate this mammogram. FINDINGS: Right: Indeterminate lower outer anterior depth calcifications Left: No suspicious masses, groups of microcalcification or areas of architectural distortion identified. Stable typically benign parenchymal asymmetries. ??Typically benign scattered calcifications. BREAST DENSITY: C - The breasts are heterogeneously dense which may obscure small masses. Procedure Note Jonny Leija MD - 03/16/2024 A BILATERAL DIGITAL 3D SCREENING MAMMOGRAPHY HISTORY: Routine screening. Family history of breast cancer in mother.Personal history of right breast cancer status post breast conservationsurgery. COMPARISON: Multiple priors dating back to 02/13/2020 Technique: Bilateral full field digital mammography (3D) was performedusing standard CC and MLO projections , left breast exaggerated CC CAD was used to evaluate this mammogram. FINDINGS: Right: Indeterminate lower outer anterior depth calcifications Left: No suspicious masses, groups of microcalcification or areas ofarchitectural distortion identified. Stable typically benign parenchymalasymmetries. Typically benign scattered calcifications. BREAST DENSITY: C - The breasts are heterogeneously dense which mayobscure small masses. IMPRESSION: 1. Left: No mammographic evidence of malignancy 2. Right: Indeterminate lower outer anterior depth calcifications 3. Heterogeneous breast parenchyma BI-RADS CATEGORY: 0 - INCOMPLETE - NEED ADDITIONAL IMAGING EVALUATION RECOMMENDATION: Additional right breast imaging recommended. Right breast CC and MLmagnification views Mammo Location: [facility], [address] [place] [address], [address], . -------- FINAL REPORT -------- Dictated By: Jonny Leija Dictated Date: 03/16/2024 18:54 ET Assigned Physician: Jonny Leija Reviewed and Electronically Signed By: Jonny Leija Signed Date: 03/16/2024 19:00 ET Workstation ID: [id number] Transcribed By: Self Edit Transcribed Date: 03/16/2024 18:54 ET Celestine Doyle MD IMG BI PROCEDURES Final Result * Annual BMP Blood Test (03/19/2023) Annual BMP Blood Test abstracted Historical Provider HEALTH MAINTENANCE Final Result * (ABNORMAL) Lipid panel (06/09/2022) LDL/HDL Ratio 3 0 - 4 Triglycerides 274(A) 0 - 150 mg/dL Cholesterol 264(A) 0 - 200 mg/dL HDL 77 >=40 mg/dL LDL Cholesterol 133(A) 0 - 100 mg/dL Blood Venous blood specimen / Unknown Historical Provider LAB BLOOD ORDERABLES Elda l Result * [facility] DEXA AXIAL SKELETON (07/25/2021 10:51 AM EDT) Anatomical Region Laterality Modality Mammography 07/25/2021 10:1 2 AM EDT Narrative 07/25/2021 10:51 AM EDT [facility] Diagnostic Imaging Department [address] [place] [address] Patient: ??ELIZ FELIPE ?/Age/Sex: 1945 - 76 - F Unit#: ??[id number] ? Location/Status: ??SPDIMAM/REG CLI ? Mnemonic/Ordering Site: ??MAMDEXAAX/SPMAM Ordering Physician: ??NICHOLE JEROME MD [facility] Dexa Axial Skeleton - 07/25/21 - 1037 HISTORY: ??The patient is a 76-year-old postmenopausal female with clinical concern for metabolic bone disease. FINDINGS: ??Dual energy x-ray absorptiometry of the lumbar spine and femurs is performed. The mean bone mineral density at L1-L4 is 1.084 gm/cm2 which is 93% of that of young normals and 104% of that of age matched controls. This yields a T-score of -0.7 and a Z-score of 0.3 and there is therefore no evidence of osteoporosis or osteopenia here. The mean bone mineral density of the femurs bilaterally is 0.753 gm/cm2 which is 75% of that of young normals and 90% of that of age matched controls. ??This yields a T-score of -2.0 and a Z-score of -0.7 which is diagnostic of osteopenia. IMPRESSION: 1. Osteopenia. 2. FRAX analysis yields a 10-year probability of major osteoporotic fracture of 12.5% and a 10-year probability of hip fracture of 2.9%. Code 35430 Dictating Physician: ??HALEI ABBASI MD Electronically Signed by: ??HALIE ABBASI MD Dic Date/Time: ??07/25/21 1050 Sign date/Time: ??07/25/21 1051 Procedure Note Halie Abbasi MD - 02/11/2022 [facility] Diagnostic Imaging Department [address] [place] [address] Patient: ELIZ FELIPE Sajan Ross./Age/Sex: 1945 - 76 - F Unit#: [id number] Location/Status: SPDIMAM/REG CLI Mnemonic/Ordering Site: MAMDEXAAX/SPMAM Ordering Physician: NICHOLE JEROME MD [facility] Dexa Axial Skeleton - 07/25/21 - 1037 HISTORY: The patient is a 76-year-old postmenopausal female withclinical concern for metabolic bone disease. FINDINGS: Dual energy x-ray absorptiometry of the lumbar spine and femursis performed. The mean bone mineral density at L1-L4 is 1.084 gm/cm2 which is93% of that of young normals and 104% of that of age matched controls. Thisyields a T-score of -0.7 and a Z-score of 0.3 and there is therefore no evidenceof osteoporosis or osteopenia here. The mean bone mineral density of the femurs bilaterally is 0.753 gm/mt8nvire is 75% of that of young normals and 90% of that of age matched controls.This yields a T-score of -2.0 and a Z-score of -0.7 which is diagnostic of osteopenia. IMPRESSION: 1. Osteopenia. 2. FRAX analysis yields a 10-year probability of major osteoporoticfracture of 12.5% and a 10-year probability of hip fracture of 2.9%. Code 34603 Dictating Physician: HALIE ABBASI MD Electronically Signed by: HALIE ABBASI MD Dic Date/Time: 07/25/21 1050 Sign date/Time: 07/25/21 1051 Nichole Jerome MD IMG BI PROCEDURES Final Resu lt * Hepatitis C Screening (01/11/2017) [facility] [place] Hepatitis C Screening abstracted Historical Provider HEALTH MAINTENANCE Final Result from Last 3 Months or Most Recently Relevant to Health Maintenance Insurance [employer] - [place] MEDICARE ADVANTAGE Care Teams Aircraft Fueler Relationship Specialty Start Date End Date Celestine Doyle MD [address] [place] [address] PCP - General 06/16/1997
--- OUTSIDE RECORDS SUMMARY | 2024-04-11 10:21 | XMS_ITS | Encounter Summary ---
Author Organization [facility] Address [address] [place] [address] Care Team Providers Care Family Service Assistant Name Role Phone Celestine Doyle MD Primary Care Provider [phone] Reason for Visit * Reason Comments Follow-up Encounter Details Date Type Department Care Team ([facility] Contact Info) Description 04/11/2024 8:45 AM EST Office Visit Urogynecology [address] [phone] Pearl Morales MD [address] [facility] [address] [place] [address] Urge incontinence (Primary Dx); Nocturia; Urinary urgency; Urinary frequency; Nocturnal enuresis; Incontinence of feces, unspecified fecal incontinence type; Prolapse of anterior vaginal wall; Uterine prolapse; Chronic skin ulcer, limited to breakdown of skin ([facility]) Social History Tobacco Use Types Packs/Day Years [...] Pulse 61 04/11/2024 8:46 AM EST Temperature - - Respiratory Rate - - Oxygen Saturation - - Inhaled Oxygen Concentration - - Weight 90.7 kg (200 lb) 04/11/2024 8:46 AM EST Height 172.7 cm (5' 8 ) 04/11/2024 8:46 AM EST Body Mass Index 30.41 04/11/2024 8:46 AM EST documented in this encounter Ordered Prescriptions Prescription Sig Dispense Quantity Refills Last Filled Start Date End Date solifenacin (VESICARE) 5 mg tablet Take 1 tablet (5 mg total) by mouth 1 (one) time each day. Swallow tablet whole; do not crush, chew, or split. 30 tablet 3 04/11/2024 documented in this encounter Progress Notes * Pearl Morales MD - 04/11/2024 8:45 AM EST Please go to the ED for treatment of your wound Try to shift your position so that your not sitting on the same spot all day For your overactive bladder: - Start a bladder control medication (solifenacin 5mg). This medication can take 4-6 weeks before it becomes effective. The most common side effects of many bladder control medications are dry mouth and constipation. Please see tips on how to manage these conditions listed below. - Avoid bladder irritants by following a bladder diet (see bladder diet below) - Try to retrain your bladder (see training instructions below) - Limit fluid consumption to less than 64oz of fluid a day (unless your plastic mould maker or other doctor has specifically told you that you need to drink a certain amount of water daily). Drink when you are thirsty, but do not overdrink Drink only enough so your urine is a light yellow color Stop drinking 2 hours before you go to bed - this will help decrease your need to get up during thenight to use the bathroom If this medication is VERY EXPENSIVE, do not pick it up from the pharmacy. Please check with your insurance company or pharmacy to find out which Overactive Bladder medication is covered and affordable for you to use, then contact our office with that information. Overactive Bladder Medications Oxybutynin (Oxybutynin Extended Release, Oxybutynin Immediate Release, Ditropan XL, Ditropan Immediate release) Trospium Immediate release (Sanctura) Trospium Extended release (Sanctura XR) Solifenacin (Vesicare) Tolterodine (Detrol) Fesoterodine (Toviaz) Darifenacin (Enablex) Mirabegron (Myrbetriq) Gemtesa (Vibegron) TIPS FOR MANAGING CONSTIPATION Miralax 17g (1 capful) once a day This is a non-habit forming laxative, and it is safe to take for long periods of time (even years!) Try taking at night for a morning bowel movement You can safely increase or decrease Miralax to what your bowels need; sometimes, people only need 1/2 a capful to have improved bowel function, or even every other day may be enough. Docusate sodium (Colace) 100mg capsule 2 times per day This is a stool softener If you have hard stool, taking docusate sodium is like putting soap around a rock - you will still need to use other modalities to improve your stool consistency Get some exercise! If you move, your bowels move! Probiotics (Align) or Activia yogurt Some patients have a lot of success with probiotics However, they can be expensive, so if you do not have success, just stop taking probiotics! TIPS FOR MANAGING DRY MOUTH: Antidepressants, anticholinergics (like some bladder control medications), antiparkinsonians, and antihistaminic drugs slow down the salivary glands resulting in dryness of the mouth. Here are some tips to decrease dental cavities, gum disease, thirst and odor: Sip cold water frequently. Roll it in your mouth before swallowing. Keep a glassful of crushed ice next to you. Sip on it to avoid overdrinking. Bacteria love our unrinsed mouth. [place] your teeth after each meal to avoid bacterial overgrowth. If you smoke, cut down or quit smoking. Try the assortment of dry mouth products by Biotene and ACT Chew sugar-free gum or a special gum for dry mouth, Biotene . Use sugar-free hard candies or lozenges. Keep your regular dental appointments. This will save your teeth and gums. Keep your lips moist by regular use of Chapstick, lip gloss, lip-seal, or vaseline. For extremely dry mouth, use artificial saliva called Oral Balance or Optimoist . Oral Balance is like jelly. Put it on your tongue. It slowly dissolves and produces moisture.Optimoist is sprayed into the mouth. You can also try Xylimelts for drymouth, which can be found on [facility] Bladder Diet For some patients with ???overactive bladder??? or other irritative or painful bladder conditions, basic changes to the diet can help to reduce symptoms. Foods and beverages that make the urine more acidic, for instance, are likely to increase urinary urgency and frequency by irritating inflamed areas of the bladder or urethra. Perhaps the most significant bladder irritants are alcohol, caffeinated beverages, and carbonated beverages. Alcoholic Beverages Tomatoes / Tomato Juice Vitamin C Coffee & Tea (even decaf) Apples Vinegar Carbonated Beverages Pineapple & Hollis Artificial Sweeteners [place] & Apple Juice Andrews & Limes Pepper Chocolate Grapefruit & Other [place] Fruits Nectarines & Peaches Lemon Juice Cranberry Strawberries [place] / Spicy Seasonings Grapes, Peaches, Plums Cantaloupes * Pearl Morales MD - 04/11/2024 8:45 AM EST UROGYNECOLOGY FOLLOW UP VISIT VISIT LOCATION: [place] DATE: 04/11/2024 CHIEF COMPLAINT: Mabel Longo is a 78 y.o. female who presents for a follow- up, with her ,and home health aide. 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 This recommendation seems to have significantly improved Mabel's fecal incontinence Trospium was not covered by the patient's insurance; her presented the insurance denial to me. As such, Mabel has not been onl any overactive bladder medication, so her urinary symptoms remain the same. She and her were previously provided a list of alternative medications and instructed to contact their insurance company to ask which would be most cost effective, but this was notdone. Her also mentions that Mabel has a cut on her bottom. This was first noticed a few days ago, as she had some bleeding on her sheets. REVIEW OF SYSTEMS (ROS): Negative except as mentioned in HPI PAST/FAMILY/SOCIAL HISTORY (PFSH): Past Surgical History: 2002: COLONOSCOPY Comment: PROCEDURE: [place] COLONOSCOPY FLX DX W/COLLJ SPEC WHEN PFRMD; COMMENT: normal 2012: COLONOSCOPY Comment: PROCEDURE: [place] COLONOSCOPY FLX DX W/COLLJ SPEC WHEN PFRMD; COMMENT: minimal diverticulosis No date: TOTAL KNEE ARTHROPLASTY Comment: PROCEDURE: HISTORICAL TOTAL KNEE REPLACE; COMMENT: bilateral Past Medical History: No date: Actinic keratosis, hx of Comment: DX:Actinic keratosis, hx of 12/26/2012: Diverticulosis of colon (without mention of hemorrhage) Comment: DX:Diverticulosis of colon (without mention of hemorrhage); COMMENT: Incidental finding at colonoscopy 12/26/2012. 09/02/2006: Essential hypertension, benign Comment: DX:Essential hypertension, benign No date: H/O right breast biopsy Comment: rt breast cancer/04/15 lumpectomy 09/11/2009: Hyperglycemia Comment: DX:Hyperglycemia 07/28/2021: Malignant neoplasm of right female breast (CMS/HCC) Comment: DX:Malignant neoplasm of right female breast (HCC) 06/16/2010: Obesity Comment: DX:Obesity 09/02/2006: Osteoarthrosis, unspecified whether generalized or localized, lower leg Comment: DX:Osteoarthrosis, unspecified whether generalized or localized, lower leg 09/02/2006: Pure hypercholesterolemia Comment: DX:Pure hypercholesterolemia Family History Problem Relation Name Age of [...] aunt Breast cancer Other m cousin 70s reports that she does not have a smoking history on file. She has never used smokeless tobacco. Shereports current alcohol use. She reports that she does not use drugs. I have reviewed the PFSH in the electronic medical record, and have updated them as necessary. Pearl Morales MD OBJECTIVE: Vitals: 04/11/24 0846 BP: 124/63 Pulse: 61 Physical Exam Constitutional: BMI - Body mass index is 30.41 kg/m??. General - Awake, alert, no acute distress Psychiatric: oriented to time, place, and person Head: normocephalic atraumatic Pulmonary: normal respiratory effort; speaking in full sentences comfortably Abdominal: obese Intergluteal cleft with diffuse erythema bilaterally with a round circumscribed 2cm wound with skinsloughing present on left side. 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 I did not know why this was prescribed, is not on her current medication list and I recommended she follow up with her PCP. Treatment plan: Left intergluteal cleft wound: ED evaluation and treatment Overactive bladder / urgency urinary incontinence: Lifestyle and behavioral modifications; solifenacin 5mg Fecal incontinence: loperamide and fiber; care per GI Pelvic organ prolapse: expectant management RTO in 3 months for medication follow with BBQ Risk of morbidity, mortality and/or complications of treatment plan: Moderate Prescription drug management I spent a total of 30 minutes on the date of the service, in seeing the patient and performing the following activities: Preparing to see the patient (e.g. reviewing tests) Obtaining and/or reviewingseparately obtained history Performing a medically appropriate examination and/or evaluation Counseling and educating the patient, family or caregiver Ordering medications, tests, or procedures Documenting clinical information in the electronic health record Pearl Morales MD 04/11/2024 documented in this encounter Plan of Treatment Upcoming Encounters Date Type Department Care Team (Late st Contact Info) Description 07/03/2024 9:30 AM EDT Office Visit [facility] [address] [phone] Celestine Doyle MD [address] [place] [address] 07/13/2024 9:00 AM EDT Office Visit Urogynecology - [address] [phone] Padmini Horton NP [address] [place] [phone] 09/18/2024 8:40 AM EDT Appointment Radiology Department - [address] [phone] 11/27/2024 9:30 AM EDT Office Visit [facility] Hematology Oncology [address] [place] [phone] Nichole Jerome MD [address] [place] [address] documented as of this encounter Visit Diagnoses Diagnosis Urge incontinence- Primary Nocturia Urinary urgency Urgency of urination Urinary frequency Nocturnal enuresis Incontinence of feces, unspecified fecal incontinence type Prolapse of anterior vaginal wall Uterine prolapse Uterine prolapse without mention of vaginal wall prolapse Chronic skin ulcer, limited to breakdown of skin (CMS/HCC) documented in this encounter Discontinued Medications Medication Sig Discontinue Reason Start Date End Da te trospium 60 mg capsule,extended release 24hr TAKE 1 CAPSULE BY MOUTH EVERY DAY 04/10/2024 04/11/2024 documented as of this encounter Additional Health Concerns Assessment Noted Time PHQ-9 Depression Total Score: 1 04/05/19 25 3:18 PM EST A fall risk assessment has been complete d for the patient 04/05/2024 3:14 PM EST documented as of this encounter Care Teams Family Service Assistant Relationship Specialty Start Date End Date Celestine Doyle MD [address] [place] [address] PCP - General 06/16/1997 documented as of this encounter
--- OUTSIDE RECORDS SUMMARY | 2024-04-11 10:21 | XMS_ITS | Encounter Summary ---
Author Organization [facility] Address [address] [place] [address] Care Team Providers Care Soccer Player Name Role Phone Celestine Doyle MD Primary Care Provider [phone] Reason for Visit * Imaging (Routine) - Closed Specialty Diagnoses / Procedures Referred By Mary richter Referred To Contact Radiology Diagnoses Encounter for screening mammogram for breast cancer Procedures MG Mammo Digital Screening w Jimenezgigi izaguirre MG Mammo Digital Screening w Jimenez bilCelestine Doshi MD [address] [place] [phone] Phone: tel: fax: [facility] Referral ID Status Reason Start Date Expiration Date Visits Re quested Visits Authorized [id number] Closed 12/09/2023 12/08/2024 1 1 Encounter Details Date Type Department Care Team (Latest Contact Info) Description 03/16/2024 10:47 AM EST - 03/16/2024 11:59 PM [facility] Hospital Encounter Radiology Department - [address] [phone] Encounter for screening mammogram for breast cancer Discharge Disposition: Home or Self Care Social [...] EDT Office Visit [facility] - [address] [phone] Celestine Doyle MD [address] [place] [phone] 07/13/2024 9:00 AM EDT Office Visit Urogynecology - [address] [phone] Padmini Horton NP [address] [place] [place] [address] 09/18/2024 8:40 AM EDT Appointment Radiology Department - [address] [phone] 11/27/2024 9:30 AM EDT Office Visit [facility] Hematology Oncology [address] [place] [phone] Nichole Jerome MD [address] [place] [address] documented as of this encounter Procedures Procedure Name Priority Date/Time Associated Diagnosis Comments MG MAMMO DIGITAL SCREENING W JIMENEZ BILAT Routine 03/16/2024 11:21 AM EST Encounter for screening mammogram for breast cancer documented in this encounter Results * (ABNORMAL) MG Mammo Digital Screening w [...] CC and ML magnification views Mammo Location: [facility], [address] [place] [address], [id number], . -------- FINAL REPORT -------- Dictated By: Jonny Leija Dictated Date: 03/16/2024 18:54 ET Assigned Physician: Jonny Leija Reviewed and Electronically Signed By: Jonny Leija Signed Date: 03/16/2024 19:00 ET Workstation ID: [id number] Transcribed By: Self Edit Transcribed Date: 03/16/2024 [...] breast CC and MLmagnification views Mammo Location: [facility], [address] [place] [address], [id number], . -------- FINAL REPORT -------- Dictated By: Jonny Leija Dictated Date: 03/16/2024 18:54 ET Assigned Physician: Jonny Leija Reviewed and Electronically Signed By: Jonny Leija Signed Date: 03/16/2024 19:00 ET Workstation ID: [id number] Transcribed By: Self Edit Transcribed Date: 03/16/2024 18:54 ET Celestine Doyle MD IMG BI PROCEDURES Final Result documented in this encounter Visit Diagnoses Diagnosis Encounter for screening mammogram for breast cancer documented in this encounter Care Teams Soccer Player Relationship Specialty Start Date End Date Celestine Doyle MD [address] [place] [address] PCP - General 06/16/1997 documented as of this encounter
--- NOTE | 2024-04-11 10:24 | AM.OFFWIN_ITS ---
Intake Vital Signs 04/11/24 10:30 Weight 198 lb BP 118/70 Blood Pressure Location Rt brachial Position Sitting Pulse 71 Pulse Source Pulse Oximeter Pulse Oximetry (%) 97 Oxygen Delivery Method Room Air Intake Visit Reasons: EP-lwr back wound Intake Note: Patient here for lower back pressure sore, unsure how long it has been there as Aid did not see it the last time she was with her which was last wednesday. Patient Tobacco Use Status: Never used Tobacco Allergies No Known Allergies Allergy (Verified 04/11/24 10:31) Do you need a note to return to daycare/school/sports/work: No HPI HPI Comments History of Present Illness Details History of Present Illness - The patient is a 78-year-old female pr esenting with a pressure ulcer, she is with her aid and her . - Located on the right buttock. - Notable yellowish-green discharge has been observed, suggesting possible infection. - Presence of warmth and redness was not ed by aid and . - Patient denies systemic symptoms like fever or chills. - Pain is intermittently present at the site, with mobility maintained despite the ulcer. - Patient has no history of similar infe ctions, including MRSA. - Pt spends a fair amount of time sittin g/laying down. Physical Exam General: Cooperative, healthy appearing, comfortable, no acute distress and well developed Orientation: Patient oriented x3 Limitations: walker for ambulation Head: Normal to inspection Ears: Hearing grossly normal bilaterally Nose: Normal external nose present Face and sinus: Normal facial exam Eyes: Appearance normal, both eyes and all related structures Neck: Normal visual inspection and Yes full ROM Respiratory: Normal respiratory effort and able to speak in complete sentences Skin: pressure ulcer on the right buttock, stage 3, leaking yellowish-green fluid, with induration and erythema surrounding Neuro: Patient oriented x3 Extremities: Normal to inspection PFSH Social History Patient Tobacco Use Status: Never used Tobacco Review of Systems Const All systems reviewed & are unremarkable except as noted in HPI and below Physical Exam Vital Signs: Last Vital Signs Pulse 71 04/11/24 10:30 BP 118/70 04/11/24 10:30 Pulse Ox 97 04/11/24 10:30 Oxygen Delivery Method Room Air 04/11/24 10:30 Assessment & Plan Assessment & Plan (1) Ulcer of buttock: Code(s): L98.419 - 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 The patient is prescribed Keflex cephalexin, to be administered four times daily for a week. Emphasis is placed on coordinating care with her PCP and a health services information specialist, given the ulcer location, severity, and discharge characteristics. Until she can be seen by wound care, I have given them supplies to cleansing with normal saline and using Xeroform. Continued observation for symptoms of systemic infection is advised, and adjustments to the management plan will be made as required, including broadening antibiotic coverage if a resistance pattern is suspected. Collaboration with the patient's general care provider, Dr. Doyle, is planned to ensure continuity and quality of care. Patient was informed and verbally consented to the use of an ambient scribe for clinic note documentation during this visit. (2) Cellulitis: Code(s): L03.90 - Cellulitis, unspecified Qualifiers: Site of cellulitis: buttock Qualified Code(s): L03.317 - Cellulitis of buttock Plan: as above Medications: New cephalexin 500 mg PO Q6H 28 caps 0RF Coding Level of Care Code New Pt Level 4 ([address]3843) Diagnoses Ulcer of buttock L98.419 Cellulitis of buttock L03.317 Site of cellulitis: buttock
[2024-04-11 10:30] VITALS: BP 118/70; PULSE 71; O2SAT 97
== END 2024-04-11 10:56 | disposition home or self-care (01) ==
PROVIDERS: PCP Internal Medicine; Visit Provider Physician Assistant
DX: L98.419 Non-pressure chronic ulcer of buttock with unspecified severity (principal); L03.317 Cellulitis of buttock

== ENCOUNTER → 2024-04-11 09:37 | Outpatient (BNVA) | payer MEDICARE, SELFPAY | PROVIDERS: PCP Internal Medicine | DX: L98.419 Non-pressure chronic ulcer of buttock with unspecified severity (principal); L03.317 Cellulitis of buttock | CPT/HCPCS: 99202 ==

== ENCOUNTER 2024-04-12 14:28 | Emergency (ER) | payer MEDICARE, SELFPAY ==
[2024-04-12 15:21] VITALS: BP 121/60; PULSE 62; RESP 18; TEMP 36.6; O2SAT 98; BMI 30.4
--- NOTE | 2024-04-12 15:24 | ED.GENADULT ---
HPI - General Adult General Chief complaint: Wound/Laceration Stated complaint: Soar On Private Area Time Seen by Provider: 04/12/24 20:20 Source: patient and family Mode of arrival: wheelchair Limitations: no limitations History of Present Illness ED Provider: zonia gong NP HPI narrative: Patient is a 78-year-old female who presents emergency department with her for evaluation. Reports a wound to the right buttock that was 1st noticed a couple of days ago. According to the home health aide who takes care for they did not notice it should be present 1 week ago. Unclear exactly how long it has been present for. The presented to [facility] walk-in clinic yesterday, were given a prescription for cephalexin, she has only taken a single dose today. Has been denies any acute changes but he states earlier in the week before being evaluated at the urgent care, the patient was seen by her urogynecologist and he mentioned the wound to her at that time and reports that she unfortunately was not able to prescribe her advise any treatment for the buttock wound and was advised to come to the emergency department. Ultimately he decided to come to the emergency department today due to her advisement. Related Data Home Medications ?Medication ?Instructions ?Recorded ?Confirmed apixaban 5 mg tablet (Eliquis) 5 mg PO BID 11/08/23 11/08/23 atenolol 50 mg tablet 50 mg PO DAILY 11/08/23 11/08/23 atorvastatin 40 mg tablet 40 mg PO DAILY 11/08/23 11/08/23 calcium 600 mg (as 1 tab PO BID 11/08/23 11/08/23 carbonate)-vitamin D3 10 mcg (400 unit) tablet fluticasone propionate 50 spray intranasal 11/08/23 11/08/23 mcg/actuation nasal spray,suspension lisinopril 10 mg tablet 10 mg PO DAILY 11/08/23 11/08/23 loratadine 10 mg tablet 10 mg PO DAILY 11/08/23 11/08/23 methimazole 5 mg tablet mg PO 11/08/23 11/08/23 sertraline 25 mg tablet 25 mg PO DAILY 11/08/23 11/08/23 loperamide 2 mg capsule mg PO DAILY 04/11/24 Previous Rx's ?Medication ?Instructions ?Recorded nystatin 100,000 unit/gram topical 1 appl topical BID PRN rash #30 11/08/23 powder grams cephalexin 500 mg capsule 500 mg PO Q6H #28 caps 04/11/24 Allergies Allergy/AdvReac Type Severity Reaction Status Date / Time No Known Allergies Allergy Verified 04/12/24 15:26 Review of Systems Review of Systems: Yes all other systems are reviewed and are negative [facility] Past Medical History Attestation statement: The following information was validated with the patient. Source: old records reviewed Social History Social History Patient Tobacco Use Status: Never used Tobacco Advance Directives: No Advance Directives Information Provided: No Do you have a plan to hurt others: No Plan Physical Exam ED Vital Signs: Vital Signs - 24 hr 04/12/24 15:21 04/12/24 20:36 04/12/24 21:44 Temperature 97.8 F 97.7 F 97.7 F Pulse Rate 62 58 58 Respiratory Rate 18 18 18 Blood Pressure 121/60 137/66 137/66 Pulse Oximetry 98 100 100 Oxygen Delivery Method Room Air Room Air Room Air BMI result Body Mass Index 30.4 Appearance: Alert.?Oriented to person, place and time. No acute distress.?Normal affect. CVS: Heart sounds normal. Normal heart rate and rhythm.? Pulses normal.?? Respiratory: No respiratory distress.? Lung sounds clear to auscultation bilaterally?? Abdomen: Soft and non-tender. Normoactive bowel sounds. Skin: Skin warm and dry.? Normal skin color.? Right buttock with 1.5 cm X 1.5 cm X 0.25 cm depth wound. There is purulence with yellow/green discharge, scant sanguinous discharge. Localized area of induration without any fluctuance, not able to manually express any purulence. Extremities: No lower extremity edema.? Neuro: Moves all extremities spontaneously. Sensation intact bilaterally. Ambulates with normal steady gait. Course Course Course Narrative: RME, this is a rapid medical exam performed by Nimesh Celis please refer to primary provider for complete H&P- 78-year-old female presents for evaluation of a wound to her left buttocks that was 1st noticed about a week ago. No fevers. The patient was sent from Wound Care. Not visualized in triage due to location. The patient did just complete a course of cephalexin Medical Decision Making Medical Decision Making MDM Narrative: Patient is a 78-year-old female with past medical history of hypertension, hyperlipidemia, hypothyroidism who presents emergency department has been for evaluation of a wound to the right buttock. As per HPI she was evaluated at urgent care yesterday advised a course of antibiotics, and care was to be coordinated with her primary care doctor as well as the Wound Center. She has taken a single dose of the antibiotics today. Has been states that he brought her to the emergency department today because a few days prior to this evaluation her urogynecologist had recommended that she come to the ER for evaluation she was not able to treat the wound. Denies any fevers or chills, denies any difficulty or inability to void. Does admit that she sits in his lying down for prolonged periods at a time, likely pressure related, we discussed the importance of offloading pressure, using a donut style cushion when sitting upright to help alleviate that pressure. Advised continued management with wound care supplies including Xeroform which was provided from the urgent care and continued completion of the course of cephalexin. I have additionally provided them the contact information for the wound care center associated with our hospital, and advised to contact her primary care doctor's office tomorrow if they have any difficulties coordinating care with the wound center. The area appears to be cellulitic, I feel that she would benefit from the cephalexin, who does not appear to be any fluctuance it is amenable to manual drainage, do not feel that incision and drainage at this time to the already open wound would be of any great benefit for her. She is overall well-appearing, nontoxic, afebrile in his without tachycardia. CBC is without leukocytosis anemia or thrombocytopenia. No electrolyte derangement. No MALA. No lactic acidosis. Differential Diagnosis Differential Diagnoses: The differential diagnosis associated with the presentation includes (See narrative above) Admission/Observation Consideration of admission/observation: Escalation of care including admission/observation considered (See narrative above) Lab Data MDM Lab Attestation statement: I reviewed the patient's lab results. (See narrative above) 04/12/24 17:33 04/12/24 17:33 Labs: Lab Results 04/12/24 Range/Units 17:33 WBC 9.7 (4.8-10.8) X10*3/uL RBC 4.45 (4.20-5.50) X10*6/uL Hgb 13.2 (12.0-16.0) g/dl Hct 41.2 (37.0-47.0) % MCV 92.6 (80.0-98.0) fL MCH 29.7 (27.0-33.0) pg MCHC 32.0 (31.0-35.0) g/dl RDW 14.2 (11.0-16.0) % Plt Count 229 (160-400) X10*3/uL MPV 11.5 (9.4-12.3) fL Immature Gran % (Auto) 0.3 (0.0-0.4) % Neut % (Auto) 78.8 H (45-73) % Lymph % (Auto) 11.0 L (20-40) % [place] % (Auto) 6.9 (2-11) % Eos % (Auto) 2.4 (0-4) % Baso % (Auto) 0.6 (0-2) % Lymph # (Auto) 1.1 L (1.2-4.9) X10*3/uL [place] # (Auto) 0.7 (0.1-1.2) X10*3/uL Eos # (Auto) 0.2 (0.0-0.4) X10*3/uL Baso # (Auto) 0.1 (0.0-0.2) X10*3/uL Abs Immat Gran (auto) 0.03 (0.00-0.03) X10*3/uL Absolute Neuts (auto) 7.6 (2.0-8.3) x10*3/uL Absolute Nucleated RBC 0.000 (0.0-0.012) X10*3/uL Nucleated RBC % (auto) 0.0 (0.0-0.2) /100WBC ESR 53 H (0-20) MM/HR Sodium 141 (135-145) mmol/L Potassium 4.4 (3.3-5.1) mmol/L Chloride 106 (96-108) mmol/L Carbon Dioxide 25 (22-29) mmol/L Anion Gap 14 (12-20) BUN 37 H (9-16) mg/dL Creatinine 0.93 (0.5-1.4) mg/dL Estim Creat Clear Calc 57.7 Estimated GFR 58 Random Glucose 97 (60-115) mg/dL Lactic Acid 0.8 (0.5-2.0) mmol/L Calcium 10.3 H (8.4-10.2) mg/dL Total Bilirubin 0.5 (0.0-1.0) mg/dL AST 18 (5-31) U/L ALT 16 (0-31) U/L Alkaline Phosphatase 101 (39-117) U/L C-Reactive Protein 1.82 H (< or = 0.50) mg/dL Total Protein 7.6 (6.5-8.0) g/dL Albumin 4.1 (3.5-5.0) g/dL Lipase 30 (8-78) U/L Independent Historian Clinical information obtained from an independent historian. History obtained from or confirmed by: Spouse External Record Review External record reviewed: Outpatient record Prescription Management I considered prescription management with: Antibiotic (See narrative above) Discharge Plan Discharge Clinical Impression: Ulcer of buttock Cellulitis Qualifiers: Site of cellulitis: buttock Qualified Code(s): L03.317 - Cellulitis of buttock Patient Disposition: Home, Self-Care Instructions: Cellulitis (ED) Additional Instructions: As discussed, I recommend that you continue the entire course of antibiotics as you were prescribed yesterday. Continue wound care as instructed with the supplies provided. Contact primary care provider to facilitate appointment at the Wound Care Center. I have provided contact information for the wound care center as well you may try contacting them to schedule an appointment Return with new or worsening symptoms or concerns such as but not limited to increased or worsening pain, increase in size of the wound, increase in redness surrounding the wound, fevers. Prescriptions: No Action loperamide 2 mg capsule PO DAILY cephalexin 500 mg capsule 500 mg PO Q6H Qty: 28 0RF loratadine 10 mg tablet 10 mg PO DAILY Eliquis 5 mg tablet 5 mg PO BID atenolol 50 mg tablet 50 mg PO DAILY sertraline 25 mg tablet 25 mg PO DAILY methimazole 5 mg tablet PO atorvastatin 40 mg tablet 40 mg PO DAILY fluticasone propionate 50 mcg/actuation spray,suspension intranasal lisinopril 10 mg tablet 10 mg PO DAILY calcium carbonate-vitamin D3 600 mg-10 mcg (400 unit) tablet 1 tab PO BID nystatin 100,000 unit/gram powder 1 appl topical BID PRN (Reason: rash) Qty: 30 0RF Referrals: [facility] Wound Care Management [Provider Group] Celestine Doyle MD [Primary Care Provider] - Interventions: ED Discharge Assessment Last Done: 04/12/24 21:44 Discharge Date/Time: 04/12/24 21:44 Print Language: Moldovan
[2024-04-12 17:45] LABS: MANUAL DIFF FLAG NO
[2024-04-12 17:46] LABS: Basophils Absolute Auto 0.1 X10*3/uL (0.0-0.2); Basophils Percent Auto 0.6 % (0-2); Eosinophils Absolute Auto 0.2 X10*3/uL (0.0-0.4); Eosinophils Percent Auto 2.4 % (0-4); Hematocrit 41.2 % (37.0-47.0); Hemoglobin 13.2 g/dl (12.0-16.0); Imm Gran Abs Auto 0.03 X10*3/uL (0.00-0.03); Imm Gran Pct Auto 0.3 % (0.0-0.4); Lymphocytes Absolute Auto 1.1 X10*3/uL (1.2-4.9); Mean Corpuscular Hemoglobin 29.7 pg (27.0-33.0); Mean Corpuscular Volume 92.6 fL (80.0-98.0); Mean Platelet Volume 11.5 fL (9.4-12.3); Monocytes Absolute Auto 0.7 X10*3/uL (0.1-1.2); Monocytes Percent Auto 6.9 % (2-11); Neutrophils Absolute Auto 7.6 x10*3/uL (2.0-8.3); Neutrophils Percent Auto 78.8 % (45-73); Platelet Count 229 X10*3/uL (160-400); Red Blood Count 4.45 X10*6/uL (4.20-5.50); Red Cell Distribution Width 14.2 % (11.0-16.0); White Blood Count 9.7 X10*3/uL (4.8-10.8)
[2024-04-12 18:00] LABS: Lactic Acid 0.8 mmol/L (0.5-2.0)
[2024-04-12 18:02] LABS: Alanine Aminotransferase 16 U/L (0-31); Albumin Level 4.1 g/dL (3.5-5.0); Alkaline Phosphatase 101 U/L (39-117); Anion Gap 14 (12-20); Aspartate Amino Transferase 18 U/L (5-31); Bilirubin Total 0.5 mg/dL (0.0-1.0); Blood Urea Nitrogen 37 mg/dL (9-16); C Reactive Protein 1.82 mg/dL (< or = 0.50); Calcium 10.3 mg/dL (8.4-10.2); Carbon Dioxide 25 mmol/L (22-29); Chloride 106 mmol/L (96-108); Creatinine Clr Calc Pharmacy 57.7; Estimated Glomerular Filt Rate 58; Glucose Random 97 mg/dL (60-115); Lipase 30 U/L (8-78); Potassium 4.4 mmol/L (3.3-5.1); Sodium 141 mmol/L (135-145); Total Protein 7.6 g/dL (6.5-8.0)
[2024-04-12 18:23] LABS: Erythrocyte Sedimentation Rate 53 MM/HR (0-20)
[2024-04-12 20:36] VITALS: BP 137/66; PULSE 58; RESP 18; TEMP 36.5; O2SAT 100
--- OUTSIDE RECORDS SUMMARY | 2024-04-12 20:45 | XMS_ITS | Encounter Summary ---
Author Organization [facility] Address [address] [place] [address] Care Team Providers Care Dispersion Mixer Name Role Phone Celestine Doyle MD Primary Care Provider [phone] Reason for Visit * Reason Onset Date Comments Sore 04/11/2024 Encounter Details Date Type Department Care Team (Late st Contact Info) Description 04/11/2024 Telephone Adult Medicine [facility] [address] [place] [address] Celestine Doyle MD [address] [place] [address] Sore Social History Tobacco Use Types Packs/Day Years [...] on file documented as of this encounter Progress Notes * Adria Uribe RN - 04/12/2024 1:32 PM EST Called and spoke with pts they did not go to er for evaluation thought was getting referralto wound clinic. Advised dr pedro er for treatment could take awhile to get into a wound clinic will go to er * Dodie Grewal - 04/12/2024 12:03 PM EST Patients Benjamin is returning call to triage * Britt Juarez RN - 04/11/2024 1:03 PM EST Pt was seen today by dr murphy who evaluated the wound and recommended er From notes Intergluteal cleft with diffuse erythema bilaterally with a round circumscribed 2 cm wound with skin sloughing present on left side. Recommended patient present to ED for wound debridement Call to pt. Left message for pt to call triage * Dodie Grewal - 04/11/2024 12:40 PM EST Patient call requires triage: Symptoms patient is presenting: patient has a pressure sore on her bottom that may be infected How long has patient had these symptoms?: 1 week For ALL patients calling to schedule any appointment (routine, sick visit, follow up, consult, etc.) in the outpatient setting please ask the following questions: Do you have fever of higher than 101, sore throat with difficulty swallowing or severe shortness ofbreath? no If YES to any of these above symptoms, send a message to triage and do not book. Red dot. If no, an audio or video visit should be booked. Have you had close contact with someone with Coronavirus in the last 14 days? no Have you traveled abroad? no Have you traveled recently to another state outside of [place], [place], [place], [place], [place], [place], [place]? no o If yes, did you quarantine for 14 days or have a negative covid test? no If yes to any of the above, patient is not to be scheduled in office until after 14 day quarantine or negative covid test. If pain or injury related was it due to an accident at work or from a motor vehicle accident? If yes, date of accident/Injury: No If yes, gather 3rd republican insurance information Third Alliance Party Information: not applicable PCP: Celestine Doyle MD Payor: BLUE [employer]OSS - [place] MEDICARE ADVANTAGE / Plan: [employer] [place] / Product Type: *No Product type* / documented in this encounter Plan of Treatment Upcoming Encounters Date Type Department Care Team (Late st Contact Info) Description 07/03/2024 9:30 AM EDT Office Visit [facility] - [address] [phone] Celestine Doyle MD [address] [place] [address] 07/13/2024 9:00 AM EDT Office Visit Urogynecology - [address] [phone] Padmini Horton NP [address] [address] 09/18/2024 8:40 AM EDT Appointment Radiology Department - [address] [phone] 11/27/2024 9:30 AM EDT Office Visit [facility] Hematology Oncology [address] [place] [phone] Nichole Jerome MD [address] [place] [address] documented as of this encounter Visit Diagnoses Not on filedocumented in this encounter Additional Health Concerns Assessment Noted Time PHQ-9 Depression Total Score: 1 04/05/19 3:18 PM EST A fall risk assessment has been complete d for the patient 04/05/2024 3:14 PM EST documented as of this encounter Care Teams Dispersion Mixer Relationship Specialty Start Date End Date Celestine Doyle MD [address] [place] [address] PCP - General 06/16/1997 documented as of this encounter
--- OUTSIDE RECORDS SUMMARY | 2024-04-12 20:45 | XMS_ITS | Continuity of Care Document ---
Author Organization [facility] Address [address] [place] [address] [address] [place] [address]- Care Team Providers Care Sow Farm Technician Name Role Phone Yanira ELDER, Celestine Primary Care Physician [phone] [id number] Date(s): 03/07/24 - 03/14/[address] [place], [place] [address] Encounter Diagnosis Stool incontinence(Discharge Diagnosis) - 03/07/24 Attending Physician: Kasandra Marcelo NP Encounter Type: Office Visit Allergies, Adverse Reactions, Alerts Substance Criticality Severity Reaction Reaction Severity Status doxycycline 1 Active azithromycin 2 Activ e penicillin Active sulfa drugs 3 Active Bactrim 4 Active Demerol 5 Active 1Rash/dermatitis 2Rash/dermatitis 3Rash/dermatitis 4Hives/Urticaria/Itching 5Nausea/vomiting Medications apixaban Starter Pack 5 mg oral tablet = 10 mg, By Mouth, 2 times a day, 0 Refills, Maintenance, 07/16/23 10:51:00 AM EDT, Tablet, Partial fill upon patient request if the prescription is for a schedule II opioid drug. Start Date: 07/16/23 Status: Ordered Repeat number: 1 apixaban Starter Pack 5 mg oral tablet = 5 mg, By Mouth, 2 times a day, 0 Refills, Maintenance, 07/16/23 10:51:00 AM EDT, Tablet, Partial fill upon patient request if the prescription is for a schedule II opioid drug. Start Date: 07/16/23 Status: Ordered Repeat number: 1 Atenolol Tablet 25 mg, By Mouth, Daily, Refills 0, Tot. Refills 0, 07/15/07 4:34:17 AM EDT Start Date: 07/15/07 Status: Ordered Repeat number: 1 atorvastatin 40 mg oral tablet TAKE 1 TABLET BY MOUTH EVERY DAY Start Date: 06/11/23 Status: Ordered Repeat number: 1 calcium-vitamin D 600 mg-400 intl units oral tablet TAKE 1 TABLET BY MOUTH TWICE A DAY Start Date: 06/11/23 Status: Ordered Repeat number: 1 Ferrous Sulfate = 325 mg, By Mouth, Daily, 0 Refills, 07/15/07 4:35:32 AM EDT Start Date: 07/15/07 Status: Ordered Repeat number: 1 folic acid 0.8 mg oral tablet 1 tablet = 0.8 mg, By Mouth, Daily, # 250 tablet, 0 Refills, Maintenance, 06/12/23 1:24:00 AM EDT, Tablet, Partial fill upon patient request if the prescription is for a schedule II opioid drug. Start Date: 06/12/23 Status: Ordered Quantity: 250.0 Unit: tablet Repeat number: 1 methimazole 5 mg oral tablet 10 mg, Daily, Refills 0, Maintenance, 04/23/23 10:56:00 AM EST, Partial fill upon patient request if the prescription is for a schedule II opioid drug. Start Date: 04/23/23 Status: Ordered Repeat number: 1 sertraline 25 mg oral tablet 0 Refills, Maintenance, 04/23/23 10:56:00 AM EST, Partial fill upon patient request if the prescription is for a schedule II opioid drug. Start Date: 04/23/23 Status: Ordered Repeat number: 1 vitamin E 180 mg oral capsule 1 capsule = 180 mg, By Mouth, Daily, # 100 capsule, 0 Refills, Maintenance, 06/12/23 1:23:00 AM EDT,Capsule, Partial fill upon patient request if the prescription is for a schedule II opioid drug. Start Date: 06/12/23 Status: Ordered Quantity: 100.0 Unit: capsule Repeat number: 1 Problem List Condition Confirmation Course Effective Dates Status Health St atus Informant Obese class I Confirmed Active Diagnosis Diagnosis Type Effective Dates Health Status Clinical Service Informant Stool incontinence Discharge Diagnosis 03/07/24 Vital Signs Most recent to oldest [Reference Range]: 1 Height 173 cm (03/07/24 11:06 AM) Weight 90.9 kg (03/07/24 11:06 AM) Pulse Rate [55-90 bpm] 65 bpm (03/07/24 11:06 AM) Body Mass Index [18.5-24.99 kg/m2] 30.37 kg/m2 *>HHI* (03/07/24 11:06 AM) Blood Pressure [90-138/55-84 mm Hg] 105/ 68mm Hg (03/07/24 11:06 AM) Temperature [96.8-100.4 DegF] 94.6 DegF *L* (03/07/24 11:06 AM) Blood pressure sites Arm, right (03/07/24 11:06 AM) Temperature Route Temporal (03/07/24 11:06 AM) Social History Social History Type Response Smoking Status Never (less than 100 in lifetime) entered on: 04/13/23 Sex Female Sex Representation Female (finding) Patient Care team information Care Team Personnel Name: Kely Fox NP Position: [facility] PCO Associate Professional Member Role: Primary Care Nurse Name: Dulce Magaña RN Position: [facility] SN RN Member Role: Primary Care Nurse Name: Penelope Villarreal RN Position: [facility] RN Member Role: Primary Care Nurse Name: Sander Uribe RN Position: [facility] RN Member Role: Primary Care Nurse Name: Faith Hu RN Position: [facility] SN RN Member Role: Primary Care Nurse Name: Guerline Call RN Position: [facility] RN Member Role: Primary Care Nurse Name: Mona Singh RN Position: [facility] RN Member Role: Primary Care Nurse Name: Bee Ko RN Position: [facility] RN Member Role: Primary Care Nurse Name: Celestine Doyle MD Position: Reference Physician Member Role: PCP Address: [address] [place] [id number] Telecom: Care Team Related Persons Name: MACARIO FELIPE Name: ROBERTA GLORIA Name: ANTHONY GLORIA Name: ANTHONY GLORIA Insurance Providers Guarantor name: ELIZ FELIPE Health Plan Information #: 1 Payer: NA Member Number: [id number] Policy Number: NA Group Number: [id number] Health Plan Information #: 2 Payer: NA Member Number: [id number] Policy Number: NA Group Number: [id number]
--- OUTSIDE RECORDS SUMMARY | 2024-04-12 20:45 | XMS_ITS | Encounter Summary ---
Author Organization [facility] Address [address] [place] [address] Care Team Providers Care Inside Barrel Polisher Name Role Phone Celestine Doyle MD Primary Care Provider [phone] Reason for Visit * Reason Comments Follow-up Encounter Details Date Type Department Care Team [facility] Contact [facility] Description 04/11/2024 8:45 AM EST Office Visit Urogynecology [address] [phone] Pearl Morales MD [address] [facility] [address] [place] [address] Urge incontinence (Primary Dx); Nocturia; Urinary urgency; Urinary frequency; Nocturnal enuresis; Incontinence of feces, unspecified fecal incontinence type; Prolapse of anterior vaginal wall; Uterine prolapse; Chronic skin ulcer, limited to breakdown of skin ([facility]) Social History Tobacco Use Types Packs/Day Years [...] 64oz of fluid a day (unless your refrigeration unit repairer or other doctor has specifically told you [...] avoid overdrinking. Bacteria love our unrinsed mouth. Joseph your teeth after each meal to avoid [...] for drymouth, which can be found on [employer] Bladder Diet For some patients with ???overactive [...] Carbonated Beverages Pineapple & [place] Artificial Sweeteners [place] & Apple Juice Andrews & Limes Pepper Chocolate Grapefruit & Other [place] Fruits Nectarines & Peaches Lemon Juice Cranberry Strawberries Ashley / Spicy Seasonings Grapes, Peaches, Plums Cantaloupes * Pearl Morales MD - 04/11/2024 8:45 AM EST UROGYNECOLOGY FOLLOW UP VISIT VISIT LOCATION: [place] DATE: 04/11/2024 CHIEF COMPLAINT: Mabel Longo is a 78 y.o. female who presents for a follow- up, with her ,and home health aide. At her last visit (12/22/2023), our plan was as follows: Overactive bladder / urgency urinary incontinence: Lifestyle and behavioral modifications; [id number] Fecal incontinence: fiber, loperamide, GI referral Pelvic [...] Past Surgical History: 2002: COLONOSCOPY Comment: PROCEDURE: NC COLONOSCOPY FLX DX W/COLLJ SPEC WHEN PFRMD; COMMENT: normal 2012: COLONOSCOPY Comment: PROCEDURE: NC COLONOSCOPY FLX DX W/COLLJ SPEC WHEN PFRMD; [...] EDT Office Visit [facility] - [address] [phone] Celestine Doyle MD [address] [place] [address] 07/13/2024 9:00 AM EDT Office Visit Urogynecology - [address] [phone] Padmini Horton NP [address] [place] [address] 09/18/2024 8:40 AM EDT Appointment Radiology Department - [address] [phone] 11/27/2024 9:30 AM EDT Office Visit [facility] Hematology Oncology [address] [place] [phone] Nichole Jerome MD [address] [place] [address] documented as of this encounter Visit Diagnoses [...] documented as of this encounter Care Teams Inside Barrel Polisher Relationship Specialty Start Date End Date Celestine Doyle MD [address] [place] [address] PCP - General 06/16/1997 documented as of this encounter
--- OUTSIDE RECORDS SUMMARY | 2024-04-12 20:45 | XMS_ITS | Encounter Summary ---
Author Organization [facility] Address [address] [place] [address] Care Team Providers Care Central Service Technician Name Role Phone Celestine Doyle MD Primary Care Provider [phone] Reason for Visit * Reason Comments ANNUAL WELLNESS VISIT Encounter Details Date Type Department Care Team (Late st Contact Info) Description 04/05/2024 3:00 PM EST Office Visit Adult Medicine [facility] [place] [address] [place] [phone] Celestine Doyle MD [address] [place] [address] Alzheimer disease (CMS/HCC) (Primary Dx); Other hyperlipidemia; [...] History: Procedure Laterality Date COLONOSCOPY 2002 PROCEDURE: TX COLONOSCOPY FLX DX W/COLLJ SPEC WHEN PFRMD; COMMENT: normal COLONOSCOPY 2012 PROCEDURE: TX COLONOSCOPY FLX DX W/COLLJ SPEC WHEN PFRMD; [...] 0.5 mL or 0.25 mL dosage 10/31/2021 [employer] SARS-CoV-2 COVID-19, mRNA, LNP-S, preservative free 03/29/2020, [...] time 20 (if applicable add billing code 57300 with modifier 25 or modifier 33 if [...] Out Celestine Doyle MD ADULT [facility]ICINE [facility] [address] [address] Dept: [phone] Dept CHIEF COMPLAINT: ANNUAL WELLNESS VISIT IDENTIFIER: [...] Date Noted Abnormal MRI 05/10/2023 Alzheimer disease ([facility]) 04/01/2023 Current mild episode of major depressive disorder without prior episode ([facility]) 04/01/2023 Acute deep vein thrombosis (DVT) of calf muscle vein of right lower extremity ([facility]) 10/22/2022 Subclinical hyperthyroidism 06/09/2022 Vitamin D deficiency 10/30/2021 Hyperlipidemia 07/28/2021 Malignant neoplasm of right female breast ([facility]) 07/28/2021 Infiltrating duct carcinoma ([facility]) 04/23/2021 Osteopenia 11/21/2018 Actinic keratosis 04/18/2014 Diverticulitis [...] 9:30 AM EDT Office Visit Adult Medicine [place] - [address] [phone] Celestine Doyle MD [address] [place] [address] 07/13/2024 9:00 AM EDT Office Visit Urogynecology [address] [phone] Padmini Horton NP [address] [place] [address] 09/18/2024 8:40 AM EDT Appointment Radiology Department - [place] [address], [place] [phone] 11/27/2024 9:30 AM EDT Office Visit [facility] Hematology Oncology [address] [place] [address] Nichole Jerome MD [address] [place] [address] documented as of this encounter Visit Diagnoses Diagnosis Alzheimer disease (CMS/[facility])- Primary Alzheimer's disease Other hyperlipidemia Urinary incontinence, [...] documented as of this encounter Care Teams Central Service Technician Relationship Specialty Start Date End Date Celestine Doyle MD [address] [place] [address] PCP - General 06/16/1997 documented as of this encounter
--- OUTSIDE RECORDS SUMMARY | 2024-04-12 20:45 | XMS_ITS | Continuity of Care Document ---
Author Organization [facility] Address [address] [place] [address] [address] [place] [address]- Care Team Providers Care Mechanical Maintenance Foreman Name Role Phone Yanira ELDER, Celestine Primary Care Physician Encounter [facility] Date(s): 03/07/24 - 04/06/[address] [place], [place] [address] Attending Physician: Admtr, Ar8 Admitting Physician: Admtr, Ar8 Referring Physician: Admtr, Ar8 Encounter Type: Triage Allergies, Adverse Reactions, Alerts Substance Criticality Severity [...] atus Informant Obese class I Confirmed Active Social History Social History Type Response Smoking Status Never (less than 100 in lifetime) entered on: 04/13/23 Sex Female Sex Representation Female (finding) Patient Care team information Care Team Personnel Name: Ruddy ALFORDKely Position: [facility] Associate Professional Member Role: Primary Care Nurse Name: Dulce Magaña RN Position: [facility] SN RN Member Role: Primary Care Nurse Name: Penelope Villarreal RN Position: [facility] RN Member Role: Primary Care Nurse Name: Sander Uribe RN Position: [facility] RN Member Role: Primary Care Nurse Name: Faith Hu RN Position: [facility] SN RN Member Role: Primary Care Nurse Name: Guerline Call RN Position: [facility] RN Member Role: Primary Care Nurse Name: Mona Singh RN Position: [facility] RN Member Role: Primary Care Nurse Name: Bee Ko RN Position: [facility] RN Member Role: Primary Care Nurse Name: Celestine Doyle MD Position: Reference Physician Member Role: PCP Address: [address] [place] [address] Telecom: Care Team Related Persons Name: MACARIO FELIPE Name: ROBERTA GLORIA Name: ANTHONY GLORIA Name: ANTHONY GLORIA Insurance Providers Guarantor name: ELIZ FELIPE Health Plan Information #: 1 Payer: RALPH Member Number: NA Policy Number: NA Group Number: [id number]
--- OUTSIDE RECORDS SUMMARY | 2024-04-12 20:45 | XMS_ITS | Clinical Summary ---
Author Organization [facility] Address [address] [id number] Care Team Providers Care Shirt Finisher Name Role Phone Celestine Doyle MD Primary Care Provider [phone] Allergies Active Allergy Reactions Criticality Noted Date [...] age to complete this topic Care Teams Shirt Finisher Relationship Specialty Start Date End Date Celestine Doyle MD PCP - General Internal Medicine 03/20/21
--- OUTSIDE RECORDS SUMMARY | 2024-04-12 20:45 | XMS_ITS | Encounter Summary ---
Author Organization [facility] Address [address] [place] [address] Care Team Providers Care Clinical Material Handler Name Role Phone Celestine Doyle MD Primary Care Provider [phone] Reason for Visit * Imaging (Routine) - Closed Specialty Diagnoses / Procedures Referred By Mary richter Referred To Contact Radiology Diagnoses Encounter for screening mammogram for breast cancer Procedures MG Mammo Digital Screening w Jimenezgigi izaguirre MG Mammo Digital Screening w Jimenez bilCelestine Doshi MD [address] [place] [address] Phone: tel: fax: [facility] Referral ID Status Reason Start Date Expiration Date Visits Re quested Visits Authorized [id number] Closed 12/09/2023 12/08/2024 1 1 Encounter Details Date Type Department Care Team (Latest Contact Info) Description 03/16/2024 10:47 AM EST - 03/16/2024 11:59 PM [facility] Hospital Encounter Radiology Department - [address] [address] Encounter for screening mammogram for breast cancer [...] mouth daily for 360 days. 05/10/2023 05/04/2024 cholecalciferol (VITAMIN D-3) 50 mcg (2,000 unit) [...] 1 TABLET BY MOUTH EVERY DAY 06/29/2023 calcium carbonate-vitamin D 600 mg-10 mcg (400 unit) per tablet TAKE 1 TABLET BY MOUTH TWICE A DAY 12/18/2022 04/12/2024 documented as of this encounter Discharge Disposition Disposition Code Departure Means Destination Home or Self Care documented in this encounter Plan of Treatment Upcoming Encounters Date Type Department Care Team (Late st Contact Info) Description 07/03/2024 9:30 AM EDT Office Visit Adult Medicine [place] [facility] [place] [address] [place] [address] Celestine Doyle MD [address] [place] [address] 07/13/2024 9:00 AM EDT Office Visit Urogynecology - [address] [phone] Padmini Horton NP [address] [place] [address] 09/18/2024 8:40 AM EDT Appointment Radiology Department - [address] [phone] 11/27/2024 9:30 AM EDT Office Visit [facility] Hematology Oncology [address] [place] [address] Nichole Jerome MD [address] [place] [address] documented as of this encounter Procedures Procedure [...] CC and ML magnification views Mammo Location: [place] [facility], [address] [place] [address], [address], . -------- FINAL REPORT -------- Dictated By: Jonny Leija Dictated Date: 03/16/2024 18:54 ET Assigned Physician: Jonny Leija Reviewed and Electronically Signed By: Jonny Leija Signed Date: 03/16/2024 19:00 ET Workstation ID: [id number] Transcribed By: Self Edit Transcribed Date: 03/16/2024 [...] breast CC and MLmagnification views Mammo Location: [place] [facility], [address] [place] [address], [address], . -------- FINAL REPORT -------- Dictated By: Jonny Leija Dictated Date: 03/16/2024 18:54 ET Assigned Physician: Jonny Leija Reviewed and Electronically Signed By: Jonny Leija Signed Date: 03/16/2024 19:00 ET Workstation ID: [id number] Transcribed By: Self Edit Transcribed Date: 03/16/2024 18:54 ET Celestine Doyle MD IMG BI PROCEDURES Final Result documented in this encounter Visit Diagnoses Diagnosis Encounter for screening mammogram for breast cancer documented in this encounter Care Teams Clinical Material Handler Relationship Specialty Start Date End Date Celestine Doyle MD [address] [place] [address] PCP - General 06/16/1997 documented as of this encounter
--- OUTSIDE RECORDS SUMMARY | 2024-04-12 20:45 | XMS_ITS | Clinical Summary ---
Author Organization [facility] [address] [facility] Address [address] [place] [address] Phone Care Team Providers Care Polisher Implant Name Role Phone Celestine Doyle MD Primary Care Provider [phone] Allergies Active Allergy Reactions Criticality Noted Date Comments Azithromycin 11/23/2017 Other Reaction(s): Rash/Dermatitis Sulfamethoxazole-Trimet hoprim 03/09/2009 Other Reaction(s): Hives/Urticaria, Itching/Pruritus Meperidine Nausea And Vomiting 12/26/2012 Doxycycline Hyclate 11/23/2017 Other Reaction(s): Rash/Dermatitis Penicillins 08/13/2005 Sulfa (Sulfonamide Antibiotics) 01/07/2017 Other Reaction(s): Rash/Dermatitis Medications apixaban (Eliquis) 5 mg tablet TAKE 1 [...] mouth 4 (four) times a day. Active calcium carbonate-marly min D 600 mg-10 mcg (400 unit) per tablet TAKE 1 TABLET BY MOUTH TWICE A DAY 180 tablet 1 04/12/19 25 Active solifenacin (VESICARE) 5 mg tablet Take 1 tablet (5 mg total) by mouth 1 (one) time each day. Swallow tablet whole; do not crush, chew, or split. 30 tablet 3 04/11/19 25 Active solifenacin (VESICARE) 10 mg tablet Take 1 tablet (10 mg total) by mouth 1 (one) time each day. Swallow tablet whole; do not crush, chew, or split. 90 each 3 04/11/19 25 026 Active calcium carbonate-marly min D 600 mg-10 mcg (400 unit) per tablet TAKE 1 TABLET BY MOUTH TWICE A DAY 12/19/19 23 025 Discontinued trospium (SANCTURA) 20 mg tablet Take 3 [...] 04/11/2024 8:45 AM EST Office Visit Urogynecology [address] [phone] Pearl Morales MD Urge incontinence (Primary Dx); Nocturia; Urinary urgency; Urinary frequency; Nocturnal enuresis; Incontinence of feces, unspecified fecal incontinence type; Prolapse of anterior vaginal wall; Uterine prolapse; Chronic skin ulcer, limited to breakdown of skin ([facility]/HCC) 04/11/2024 Telephone Adult Medicine [address] [phone] Celestine Doyle MD Sore 04/05/2024 3:00 PM EST Office Visit Adult Medicine [address] [phone] Celestine Doyle MD Alzheimer disease ([facility]) (Primary Dx); Other hyperlipidemia; Urinary incontinence, unspecified type; Hyperglycemia; Primary hypertension; Pure hypercholesterolemia 03/22/2024 8:40 AM EST - 03/22/2024 11:59 PM EST Hospital Encounter Radiology Department - [address] [phone] Abnormal mammogram Discharge Disposition: Home or Self Care 03/16/2024 10:47 AM EST - 03/16/2024 11:59 PM EST Hospital Encounter Radiology Department - [address] [phone] Encounter for screening mammogram for breast cancer Discharge Disposition: Home or Self Care 02/04/2024 10:40 AM EST Consult Gastroenterology - [place] [address] [place] [address] Bob Dorsey PA Diarrhea, unspecified type (Primary Dx); Urinary frequency; Alzheimer's disease ([facility]); H/O deep venous thrombosis from Last 3 [...] KNEE REPLACE; COMMENT: bilateral COLONOSCOPY 2002 PROCEDURE: OK COLONOSCOPY FLX DX W/COLLJ SPEC WHEN PFRMD; COMMENT: normal COLONOSCOPY 2012 PROCEDURE: OK COLONOSCOPY FLX DX W/COLLJ SPEC WHEN PFRMD; [...] of Malignant neoplasm of right female breast (CMS/[facility]) 07/28/2021 DX:Malignant neoplasm of rig ht female [...] EDT Office Visit [place] - [address] [phone] Celestine Doyle MD [address] [place], [place] 07/13/2024 9:00 AM EDT Office Visit Urogynecology - [address] [phone] Padmini Horton NP [address] [place] [address] 09/18/2024 8:40 AM EDT Appointment Radiology Department - [address] [phone] 11/27/2024 9:30 AM EDT Office Visit [facility] Hematology Oncology [address] [place] [phone] Nichole Jerome MD [address] [place] [address] Health Maintenance Due Date Last Done Comments [...] TEST Routine 03/19/2023 LIPID PANEL Routine 06/09/2022 [facility] DEXA AXIAL SKELETON Routine 07/25/2021 10:51 AM EDT Encounter for screening for osteoporosis HEPATITIS C SCREENING Routine 01/11/2017 from Last 3 Months or Most Recently Relevant to Health Maintenance Results * MG Mammo Diagnostic Addl Views [...] right breast in 6 months. Mammo Location: [facility], [address] [place] [address], [address], . -------- FINAL REPORT -------- Dictated By: Bella Villanueva Dictated Date: 03/22/2024 09:02 ET Assigned Physician: Bella Villanueva Reviewed and Electronically Signed By: Bella Villanueva Signed Date: 03/22/2024 09:05 ET Workstation ID: [id number] Transcribed By: Self Edit Transcribed Date: 03/22/2024 [...] the right breast in 6months. Mammo Location: [facility], [address] [place] [address], [address], . -------- FINAL REPORT -------- Dictated By: Bella Villanueva Dictated Date: 03/22/2024 09:02 ET Assigned Physician: Bella Villanueva Reviewed and Electronically Signed By: Bella Villanueva Signed Date: 03/22/2024 09:05 ET Workstation ID: [id number] Transcribed By: Self Edit Transcribed Date: 03/22/2024 [...] CC and ML magnification views Mammo Location: [facility], [address] [place] [address], [address], . -------- FINAL REPORT -------- Dictated By: Jonny Leija Dictated Date: 03/16/2024 18:54 ET Assigned Physician: Jonny Leija Reviewed and Electronically Signed By: Jonny Leija Signed Date: 03/16/2024 19:00 ET Workstation ID: [id number] Transcribed By: Self Edit Transcribed Date: 03/16/2024 [...] breast CC and MLmagnification views Mammo Location: [facility], [address] [place] [address], [address], . -------- FINAL REPORT -------- Dictated By: Jonny Leija Dictated Date: 03/16/2024 18:54 ET Assigned Physician: Jonny Leija Reviewed and Electronically Signed By: Jonny Leija Signed Date: 03/16/2024 19:00 ET Workstation ID: [id number] Transcribed By: Self Edit Transcribed Date: 03/16/2024 [...] LAB BLOOD ORDERABLES Elda l Result * CARRIE DEXA AXIAL SKELETON (07/25/2021 10:51 AM EDT) Anatomical Region Laterality Modality Mammography 07/25/2021 10:1 2 AM EDT Narrative 07/25/2021 10:[address] [facility] Diagnostic Imaging Department [address] [place] [address] Patient: ??ELIZ FELIPE ?/Age/Sex: 1945 - 76 - F Unit#: ??[id number] ? Location/Status: ??SPDIMAM/REG CLI ? Mnemonic/Ordering Site: ??MAMDEXAAX/SPMAM Ordering Physician: ??NICHOLE JEROME MD Carrie Dexa Axial Skeleton - 07/25/21 - 1037 [...] probability of hip fracture of 2.9%. Code 36757 Dictating Physician: ??HALIE ABBASI MD Electronically Signed by: ??HALIE ABBASI MD Dic Date/Time: ??07/25/21 1050 Sign date/Time: ??07/25/21 1051 Procedure Note Halie Abbasi MD - 02/11/2022 [facility] Diagnostic Imaging Department [address] [place] [address] Patient: ELIZ FELIPE /Age/Sex: 1945 76 - F Unit#: [id number] Location/Status: SPDIMAM/REG CLI Mnemonic/Ordering Site: MAMDEXAAX/SPMAM Ordering Physician: NICHOLE JEROME MD Carrie Dexa Axial Skeleton - 07/25/21 - 1037 [...] density of the femurs bilaterally is 0.753 gm/fo3tlmoh is 75% of that of young normals and 90% of that of age matched controls.This yields a T-score of -2.0 and a Z-score of -0.7 which is diagnostic of osteopenia. IMPRESSION: 1. Osteopenia. 2. FRAX analysis yields a 10-year probability of major osteoporoticfracture of 12.5% and a 10-year probability of hip fracture of 2.9%. Code 22757 Dictating Physician: HALIE ABBASI MD Electronically Signed by: HALIE ABBAIS MD Dic Date/Time: 07/25/21 1050 Sign date/Time: 07/25/21 1051 Nichole Jerome MD IMG BI PROCEDURES Final Resu lt * Hepatitis C Screening (01/11/2017) Hepatitis C Screening abstracted us Historical Provider HEALTH MAINTENANCE Final Result from Last 3 Months or Most Recently Relevant to Health Maintenance Insurance [employer] - [place] MEDICARE ADVANTAGE Care Teams Polisher Implant Relationship Specialty Start Date End Date Celestine Doyle MD [address] [place] [address] PCP - General 06/16/1997
--- OUTSIDE RECORDS SUMMARY | 2024-04-12 20:45 | XMS_ITS | Encounter Summary ---
Author Organization [facility] Address [address] [place] [address] Care Team Providers Care Crusher Setter Name Role Phone Celestine Doyle MD Primary Care Provider [phone] Reason for Referral * Imaging (Routine) - Closed Specialty Diagnoses / Procedures Referred By Mary richter Referred To Contact Radiology Diagnoses Abnormal mammogram Procedures MG Mammo Diagnostic Addl Views Right Celestine Doyle MD [address] [place] [address] Phone: tel: fax: [address] Phone: tel: Referral ID Status Reason Start Date Expiration Date Visits Re quested Visits Authorized [id number] Closed 03/17/2024 03/17/2025 1 1 Reason for Visit * Imaging (Routine) - Closed Specialty Diagnoses / Procedures Referred By Mary richter Referred To Contact Radiology Diagnoses Abnormal mammogram Procedures MG Mammo Diagnostic Addl Views Right Celestine Doyle MD [address] [place] [address] Phone: tel: fax: [address] Phone: tel: Referral ID Status Reason Start Date Expiration Date Visits Re quested Visits Authorized [id number] Closed 03/17/2024 03/17/2025 1 1 Encounter Details Date Type Department Care Team (Latest Contact Info) Description 03/22/2024 8:40 AM EST - 03/22/2024 11:59 PM [facility] Hospital Encounter Radiology Department - [address] [address] Abnormal mammogram Discharge Disposition: Home or Self [...] EDT Office Visit Adult [facility] [place] - [address] [phone] Celestine Doyle MD [address] [place], [place] 07/13/2024 9:00 AM EDT Office Visit Urogynecology - [address] [phone] Padmini Horton NP [address] [place] [address] 09/18/2024 8:40 AM EDT Appointment Radiology Department - [address] [phone] 11/27/2024 9:30 AM EDT Office Visit [facility] Hematology Oncology [address] [place] [address] Nichole Jerome MD [address] [place] [address] documented as of this encounter Procedures Procedure [...] right breast in 6 months. Mammo Location: [place] [facility], [address] [place] [address], [address], . -------- FINAL REPORT -------- Dictated By: Bella Villanueva Dictated Date: 03/22/2024 09:02 ET Assigned Physician: Bella Villanueva Reviewed and Electronically Signed By: Bella Villanueva Signed Date: 03/22/2024 09:05 ET Workstation ID: [id number] Transcribed By: Self Edit Transcribed Date: 03/22/2024 [...] the right breast in 6months. Mammo Location: [facility], [address] [place] [address], [address], . -------- FINAL REPORT -------- Dictated By: Bella Villanueva Dictated Date: 03/22/2024 09:02 ET Assigned Physician: Bella Villanueva Reviewed and Electronically Signed By: Bella Villanueva Signed Date: 03/22/2024 09:05 ET Workstation ID: [id number] Transcribed By: Self Edit Transcribed Date: 03/22/2024 09:02 ET us Celestine Doyle MD IMG BI PROCEDURES Final Result documented in this encounter Visit Diagnoses Diagnosis Abnormal mammogram Abnormal mammogram, unspecified documented in this encounter Care Teams Crusher Setter Relationship Specialty Start Date End Date Celestine Doyle MD [address] [place] [address] PCP - General 06/16/1997 documented as of this encounter
--- OUTSIDE RECORDS SUMMARY | 2024-04-12 20:45 | XMS_ITS | Encounter Summary ---
Author Organization [facility] Address [address] [place] [address] Care Team Providers Care Director Of Enterprise Architecture Name Role Phone Celestine Doyle MD Primary Care Provider [phone] Encounter Details Date Type Department Care Team (Late st Contact Info) Description 11/25/2023 8:41 AM EDT Hospital Encounter TH HISTORIC ENCOUNTERS EASTERN CONVERSION ONLY Nichole Jerome MD [address] [place] [address] Social History Tobacco Use Types Packs/Day Years [...] showed grade 1 invasiveductal carcinoma which is ER/NV positive HER-2/eliud negative Patient saw in February 2021 Patient underwent lumpectomy and found to have 2.8 cm invasive carcinoma of right breast which is grade 1 pathology, ER/NV positive HER-2/eliud negative, pathological stage was [id number] [...] 9:30 AM EDT Office Visit Adult Medicine [place] - [address] [phone] Celestine Doyle MD [address] [place] [address] 07/13/2024 9:00 AM EDT Office Visit Urogynecology - [address] [phone] Padmini Horton NP [address] [place] [address] 09/18/2024 8:40 AM EDT Appointment Radiology Department - [address] [phone] 11/27/2024 9:30 AM EDT Office Visit [facility] Hematology Oncology [address] [place] [address] Nichole Jerome MD [address] [place] [address] documented as of this encounter Visit Diagnoses Not on filedocumented in this encounter Care Teams Director Of Enterprise Architecture Relationship Specialty Start Date End Date Celestine Doyle MD [address] [place] [address] PCP - General 06/16/1997 documented as of this encounter
[2024-04-12 21:44] VITALS: BP 137/66; PULSE 58; RESP 18; TEMP 36.5; O2SAT 100
== END 2024-04-12 21:44 | disposition home or self-care (01) ==
PROVIDERS: Physician Assistant; Emergency Provider Emergency Medicine; PCP Internal Medicine
DX: L98.419 Non-pressure chronic ulcer of buttock with unspecified severity (principal); L03.317 Cellulitis of buttock; Z79.01 Long term (current) use of anticoagulants; Z79.02 Long term (current) use of antithrombotics/antiplatelets; Z79.899 Other long term (current) drug therapy
CPT/HCPCS: 36415; 80053; 83605; 83690; 85025; 85652; 86140; 87040; 87070; 87077; 87185; 87186; 87205; 99283

== ENCOUNTER 2024-05-03 10:52 | Outpatient (RCR) | payer MEDICARE, SELFPAY | END 2024-05-03 12:00 | disposition home or self-care (01) | LOC: HO.WCC 10:52 | PROVIDERS: PCP Internal Medicine; Visit Provider Surgery | DX: S31.819D Unspecified open wound of right buttock, subsequent encounter (principal); L22 Diaper dermatitis | CPT/HCPCS: 99212; 99214 ==